=== PATIENT | male | born 1960 | race Caucasian/White ===

== ENCOUNTER 2018-12-25 20:05 | Observation (INO) | payer OTHER ==
[2018-12-25] MEDS ORDERED: PANTOPRAZOLE 40 MG/10 ML VIAL IVP STA (21:09)
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
[2018-12-25 21:22] LABS: Basophils # (A) 0.1 k/uL (0-0.2); Basophils % (A) 1 %; Eosinophils # (A) 0.3 k/uL (0-0.7); Eosinophils % (A) 5 %; HGB 13.1 gm/dL (13.0-17.5); Lymphocytes # (A) 1.7 k/uL (1.0-4.8); Lymphocytes % (A) 29 %; MCH 32.2 pg (25.0-35.0); MCHC 33.5 g/dL (31.0-37.0); MCV 96.2 fL (80.0-100.0); Mean Platelet Volume 7.2; Monocytes # (A) 0.4 k/uL (0-1.0); Monocytes % (A) 6 %; Neutrophils # (A) 3.4 k/uL (1.3-7.7); Neutrophils % (A) 57 %; Platelet Count 163 k/uL (150-450); RBC 4.05 m/uL (4.30-5.90); RDW 13.8 % (11.5-15.5); WBC 5.9 k/uL (3.8-10.6)
[2018-12-25 21:27] LABS: ALT 64 U/L (21-72); AST 135 U/L (17-59); African American GFR (CKD) >90 (>60 ml/min/1.73 sqM); Alkaline Phosphatase 108 U/L (38-126); Anion Gap 10 mmol/L; Blood Urea Nitrogen 6 mg/dL (9-20); Calcium 8.8 mg/dL (8.4-10.2); Carbon Dioxide 26 mmol/L (22-30); Chloride 104 mmol/L (98-107); Glucose 83 mg/dL (74-99); Non-African American GFR(CKD) >90 (>60 ml/min/1.73 sqM); Sodium 140 mmol/L (137-145); Total Bilirubin 0.3 mg/dL (0.2-1.3); Total Protein 7.6 g/dL (6.3-8.2)
[2018-12-25 21:28] LABS: INR 0.9 (<1.2); Partial Thromboplastin Time 24.9 sec (22.0-30.0); Prothrombin Time 10.1 sec (9.0-12.0)
[2018-12-25 23:55] LABS: Appearance,Urine Clear (Clear); Bilirubin,Urine Negative (Negative); Blood,Urine Negative (Negative); Color,Urine Light Yellow; Glucose,Urine (UA) Negative (Negative); Ketones,Urine Negative (Negative); Leukocyte Esterase,Urine Negative (Negative); Nitrite,Urine Negative (Negative); Protein,Urine Negative (Negative); Specific Gravity,Urine 1.009 (1.001-1.035); Urobilinogen,Urine <2.0 mg/dL (<2.0)
[2018-12-26] MEDS ORDERED: NALOXONE 0.4 MG/ML 1 ML VIAL IV PRN (00:16)
[2018-12-26] MEDS ORDERED: THIAMINE 100 MG/ML 2 ML VIAL IM STA (00:33)
[2018-12-26] MEDS ORDERED: LORazepam 2 MG/ML INJ IV PRN ×3 (00:33)
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
[2018-12-26] MEDS: SODIUM CHLORIDE 0.9% 1,000 ML IV SCH ×3 (01:25→22:53)
[2018-12-26] MEDS: NICOTINE 21MG/24HR PATCH TRANSDERM SCH (08:41)
[2018-12-26] MEDS: PANTOPRAZOLE 40 MG/10 ML VIAL IV SCH (08:41)
--- NOTE | 2018-12-26 10:05 | CONS ---
CONSULTATION DATE OF SERVICE: 12/26/2018 REASON FOR CONSULTATION: Rectal bleeding. HISTORY OF PRESENT ILLNESS: The patient is a 58-year-old white male who was admitted to the hospital because of rectal bleeding for the last one week duration. He states that he has been having 1 or 2 bowel movements daily with small amount of bright red blood per rectum. He also complains of some right flank pain. The patient states that he had a colonoscopy about 3 to 4 years ago and was noted to have multiple colon polyps and was told that he has a mass, but he is very unclear about the findings. He apparently never followed up. Recently he has been having progressive weight loss of almost 50 pounds in the last 2 years duration. He does complain of some right upper quadrant abdominal pain. He denies any fever, chills, night sweats. Reports no nausea, vomiting. Denies any significant change in his bowel habits. He was diagnosed with chronic hepatitis C approximately 20 years ago. He was treated with antiviral therapy in the past, but the treatment was discontinued as he was incarcerated and after that he never followed up in the office. PAST MEDICAL HISTORY: Significant for chronic hep C infection. PAST SURGICAL HISTORY: Tonsillectomy, hernia repair. SOCIAL HISTORY: Chronic smoker. Occasional alcohol use. FAMILY HISTORY: Brother of colon cancer recently. MEDICATIONS AT HOME: None. ALLERGIES: No known drug allergies. REVIEW OF SYSTEMS: CARDIOPULMONARY: No chest pain, shortness of breath. GENITOURINARY: No dysuria or hematuria. MUSCULOSKELETAL: Unremarkable. SKIN: Unremarkable. ENDOCRINE: Unremarkable. PSYCHIATRIC: Unremarkable. NEUROLOGY: Unremarkable. ENT/VISION: Unremarkable. CONSTITUTIONAL: Weight loss of 50 pounds in 3 years. GI: As mentioned above. PHYSICAL EXAMINATION: On physical examination, he appears comfortable. No apparent distress. Vital signs are stable. Blood pressure is 139/85, pulse rate 88, temperature 98.5. HEENT EXAMINATION: Unremarkable. Conjunctivae pink. Sclerae anicteric. Oral cavity no lesions. NECK: No JVD or lymph node enlargement. CHEST: Clear to auscultation. HEART: Regular rate and rhythm. ABDOMEN: Soft. Liver was slightly palpable below the right costal margin, but it was soft to firm in consistency. Spleen was not palpable. of the abdomen was benign. EXTREMITIES: No pedal edema. SKIN: No rashes. NEURO: Alert and oriented x3. No focal deficits. LABS: Labs from yesterday WBC 5.9, hemoglobin 13.1, platelets are normal. PT, INR is normal. ALT, AST are 135 and 64 respectively. T bilirubin and alkaline phosphatase are within normal limits. IMPRESSION: 1. Rectal bleeding of one week duration. Normal hemoglobin. Prior history of colon polyps and family history of colon cancer diagnosed in his brother who recently. The patient states that he had a colonoscopy 5 years ago. Records not available at the time of this dictation, but according to the patient, he was noted to have multiple colon polyps and a questionable colonic lesion, but no surgery was performed, actually never followed up. 2. History of chronic hepatitis C infection diagnosed 20 years ago. It was treated in the past but did not achieve remission. RECOMMENDATIONS: 1. Scheduled for a colonoscopy tomorrow. 2. Hepatitis C viral RNA and alpha fetoprotein. 3. Ultrasound of the abdomen. 4. Discussed with the patient about colonoscopy tomorrow. He agrees with the procedure. Risks, benefits, and complications explained. In regards to the chronic hepatitis C infection, he was advised to follow up in office in 2 weeks following discharge from the hospital and further management on an outpatient basis. Thank you for this consultation. MMODL / IJN: [id number] /
[2018-12-26] MEDS ORDERED: chlordiazePOXIDE 25 MG CAP PO STA (12:07)
--- NOTE | 2018-12-26 13:35 | P.PN ---
Subjective Progress Note Date: 12/26/18 patient seen and examined at bedside and reports history of intermittent bloody stools over the last 2 years and unintentional weight loss of greater than 50 pounds during this time. No acute events overnight reports history of alcoholism and that he also withdrawals Objective - Vital Signs Vital signs: Vital Signs Temp 98.7 F 12/26/18 12:12 Pulse 77 12/26/18 12:12 Resp 16 12/26/18 12:12 BP 138/65 12/26/18 12:12 Pulse Ox 98 12/26/18 12:12 Intake & Output 12/25/18 12/26/18 12/26/18 18:59 06:59 18:59 Intake Total 400 Balance 400 Weight 53.524 kg Intake: Intake, IV Titration 400 Amount Sodium Chloride 0.9% 1, 400 000 ml @ 100 mls/hr IV . [facility] Rx#:[id number] Other: Voiding Method Toilet Toilet - Exam Constitutional: No acute distress, conversant, pleasant Eyes: Anicteric sclerae, moist conjunctiva, no lid-lag, PERRLA ENMT: NC/AT,Oropharynx clear, no erythema, exudates Neck:Supple, FROM, no masses, or JVD, No carotid bruits; No thyromegaly Lungs: Clear to auscultation, Clear to percussion, Normal respiratory effort, no accessory muscle use Cardiovascular: Heart regular in rate and rhythm, No murmurs, gallops, or rubs no peripheral edema Abdominal: Soft Nontender, nom distended, no guarding, no rebound or rigidity, Normoactive bowel sounds No hepatomegaly, No splenomegaly, No palpable mass No abdominal wall hernia noted Skin: Normal temperature, tone, texture, turgor, No induration No subcutaneous nodules, No rash, lesions, No ulcers Extremities:No digital cyanosis No clubbing, Pedal pulses intact and symmetrical Radial pulses intact and symmetrical Normal gait and station, No calf tenderness Psychiatric: Alert and oriented to person, place and time, Appropriate affect Intact judgement Neuro: Muscles Strength 5/5 in all 4 extremities, Sensation to light touch gr ossly present throughout, Cranial nerves II-XII grossly intact. No focal sensory deficits - Labs CBC & Chem 7: 12/25/18 20:41 12/25/18 20:41 Labs: Abnormal Lab Results - Last 24 Hours (Table) 12/25/18 12/25/18 Range/Units 20:41 20:41 RBC 4.05 L (4.30-5.90) m/uL BUN 6 L (9-20) mg/dL Creatinine 0.50 L (0.66-1.25) mg/dL AST 135 H (17-59) U/L Assessment and Plan (1) Family history of colon cancer Current Visit: Yes Status: Acute Code(s): Z80.0 - FAMILY HISTORY OF MALIGNANT NEOPLASM OF DIGESTIVE ORGANS SNOMED Code(s): 395283272 (2) Unintentional weight loss Narrative/Plan: * Concern for underlying malignancy family history of colon cancer with reported history of intermittent bloody stools over the last 2 years Current Visit: Yes Status: Acute Code(s): R63.4 - ABNORMAL WEIGHT LOSS SNOMED Code(s): 898002167 (3) History of bloody stools Narrative/Plan: * Workup as above plan for colonoscopy * Patient is not currently anemic * Appreciate GI recommendations patient to have go likely today with plans for colonoscopy tomorrow Current Visit: Yes Status: Acute Code(s): Z87.19 - PERSONAL HISTORY OF OTHER DISEASES OF THE DIGESTIVE SYSTEM SNOMED Code(s): 666624656 (4) Hepatitis C Current Visit: Yes Status: Chronic Code(s): B19.20 - UNSPECIFIED VIRAL HEPATITIS C WITHOUT HEPATIC COMA SNOMED Code(s): 89367555 (5) Chronic alcoholism Narrative/Plan: * Continuous symptom triggered CIWA protocol with Ativan as needed * Patient also started on scheduled Librium dosing q 8 Current Visit: Yes Status: Acute Code(s): F10.20 - ALCOHOL DEPENDENCE, UNCOMPLICATED SNOMED Code(s): 1658663 Plan: Disposition * Continue to follow patient's clinical course follow-up colonoscopy results * Anticipate discharge in 1-2 days
[2018-12-26 15:00] VITALS: BMI 19.0
[2018-12-26] MEDS: THIAMINE 100 MG TAB PO SCH ×2 (15:32→18:22)
--- NOTE | 2018-12-26 15:37 | US ---
EXAMINATION TYPE: US abdomen complete DATE OF EXAM: 12/26/2018 COMPARISON: CLINICAL HISTORY: chr hep C and weight loss. abd pain, "bones hurt" EXAM MEASUREMENTS: Liver Length: 15.6 cm Gallbladder Wall: 0.3 cm CBD: 0.5 cm Spleen: 15.0 cm Right Kidney: 10.6 x 5.2 x 4.4 cm Left Kidney: 10.8 x 4.8 x 4.4 cm Pancreas: Limited by bowel gas Liver: wnl Gallbladder: appearance in slightly contracted with borderline thickened wall Evidence for sonographic Lazar's sign: no CBD: wnl Spleen: enlarged Right Kidney: wnl Left Kidney: wnl Upper IVC: wnl Abd Aorta: wnl . IMPRESSION: 1. Splenomegaly. 2. Gallbladder is decompressed and therefore limited. No obvious gallstones.
[2018-12-26] MEDS ORDERED: PEG 3350-NA SULF,BICARB,CL/KCL 4,000 ML BOTTLE PO ONE (16:00)
[2018-12-26] MEDS: chlordiazePOXIDE 25 MG CAP PO SCH ×2 (18:23→22:45)
[2018-12-27 06:50] VITALS: RESP 16
[2018-12-27 07:36] LABS: Basophils % (A) 1 %; Eosinophils # (A) 0.1 k/uL (0-0.7); Eosinophils % (A) 3 %; Lymphocytes # (A) 1.1 k/uL (1.0-4.8); Lymphocytes % (A) 32 %; MCH 31.3 pg (25.0-35.0); MCHC 31.8 g/dL (31.0-37.0); MCV 98.2 fL (80.0-100.0); Mean Platelet Volume 7.6; Monocytes # (A) 0.2 k/uL (0-1.0); Monocytes % (A) 6 %; Neutrophils % (A) 56 %; Platelet Count 128 k/uL (150-450); RBC 4.18 m/uL (4.30-5.90); RDW 13.8 % (11.5-15.5); WBC 3.6 k/uL (3.8-10.6)
[2018-12-27 07:49] LABS: ALT 54 U/L (21-72); AST 76 U/L (17-59); African American GFR (CKD) >90 (>60 ml/min/1.73 sqM); Albumin 3.2 g/dL (3.5-5.0); Alkaline Phosphatase 81 U/L (38-126); Anion Gap 4 mmol/L; Blood Urea Nitrogen 7 mg/dL (9-20); Calcium 8.4 mg/dL (8.4-10.2); Carbon Dioxide 30 mmol/L (22-30); Chloride 108 mmol/L (98-107); Glucose 91 mg/dL (74-99); Non-African American GFR(CKD) >90 (>60 ml/min/1.73 sqM); Potassium 4.1 mmol/L (3.5-5.1); Sodium 142 mmol/L (137-145); Total Bilirubin 0.6 mg/dL (0.2-1.3); Total Protein 6.5 g/dL (6.3-8.2)
[2018-12-27] MEDS: SODIUM CHLORIDE 0.9% 1,000 ML IV SCH (08:29)
[2018-12-27] MEDS: PANTOPRAZOLE 40 MG/10 ML VIAL IV SCH (08:30)
[2018-12-27] MEDS: THIAMINE 100 MG TAB PO SCH (08:30)
[2018-12-27] MEDS: NICOTINE 21MG/24HR PATCH TRANSDERM SCH (08:30)
[2018-12-27] MEDS: chlordiazePOXIDE 25 MG CAP PO SCH (08:30)
[2018-12-27] MEDS ORDERED: LIDOCAINE 1% INJ 10MG/ML (20 ML MDV) ONE (09:17)
[2018-12-27] MEDS ORDERED: PROPOFOL 10 MG/ML 20 ML VIAL IV ONE (09:17)
[2018-12-27] MEDS ORDERED: IV FLUID CONTINUATION 1,000 ML IV ONE (09:25)
--- NOTE | 2018-12-27 09:47 | P.PCN ---
Date of Procedure: 12/27/18 Procedure(s) Performed: Brief history: Patient is a pleasant 58-year-old white male, admitted hospital with intermittent rectal bleeding. He lost 50 pounds in the last 3 years duration. He states that he did have an upper endoscopy as well as colonoscopy 3 years ago and was diagnosed with multiple colon polyps and a questionable mass recently at about the findings. In view of her progressive weight loss he is scheduled for an elective upper endoscopy as well as colonoscopy today. Procedure performed: Esophagogastroduodenoscopy Colonoscopy with snare polypectomy Preoperative diagnosis: Progressive weight loss of 50 pounds in the last 3 years duration Intermittent rectal bleeding Anesthesia: MAC Procedure: After informed consent was obtained from the patient was brought into the endoscopy unit and IV sedation was administered by anesthesia under continuous monitoring. Initially upper endoscopy was done. The Olympus GF 160 video endoscope was inserted inserted into the mouth and esophagus intubated without any difficulty and was gradually advanced into the stomach and duodenum and carefully examined. The bulb and second part of the duodenum appeared normal. The scope was then withdrawn into the stomach adequately insufflated with air and upon careful examination the antrum and body, cardia and fundus appeared normal. The scope was then withdrawn into the esophagus. The GE junction was located at 40 cm to the incisors. It appeared regular with no erythema erosions or ulcerations. Rest of the esophagus appeared normal. Patient tolerated the procedure well. At this time the patient continued to remain sedation. Initial digital rectal examination was normal. Olympus CF 160 video colonoscope was then inserted into the rectum and gradually advanced to the cecum without any difficulty. Careful examination was performed as the scope was gradually being withdrawn. The prep was excellent. In the base of the cecum there was a 5 mm sessile polyp that was removed by snare polypectomy. The cecum, ascending colon, transverse colon, descending colon, sigmoid colon and rectum appeared normal. Retroflexion was performed in the rectum and small internal hemorrhoids were noted. Patient tolerated the procedure well. Impression: 1. Upper endoscopy was essentially within normal limits with no evidence of esophagitis or peptic ulcer disease 2. Colonoscopy revealed a 5 mm cecal polyp status post polypectomy and small internal hemorrhoids. Rcolonoscopyecommendations: Findings of this examination were discussed with the patient as well as his family. He was advised to follow with the biopsy results. If the biopsy reveals adenoma he can have a repeat colonoscopy in 5 years.
[2018-12-27 10:26] VITALS: TEMP 97.6
[2018-12-27 10:27] VITALS: BP 156/84; PULSE 66
--- NOTE | 2018-12-27 13:53 | P.DS ---
Providers Date of admission: 12/27/18 10:48 Expected date of discharge: 12/27/18 Attending physician: Salvatore Harrington MD Consults: 12/26/18 00:30 Consult Physician Routine Consulting Provider: Ignacio Smith Consult Reason/Comments: GI bleed Do you want consulting provider notified?: Yes, Notify in am Primary care physician: Stated None - Discharge Diagnosis(es) (1) Family history of colon cancer Current Visit: Yes Status: Acute (2) Unintentional weight loss Current Visit: Yes Status: Acute (3) History of bloody stools Current Visit: Yes Status: Acute (4) Hepatitis C Current Visit: Yes Status: Chronic (5) Chronic alcoholism Current Visit: Yes Status: Acute Hospital Course: The patient is a 58-year-old male with a past medical history of hepatitis C chronic alcohol dependence and a family history of a recently brother secondary to colon cancer and presented and was admitted with concern for underlying malignancy secondary to unintentional weight loss and complaints of intermittent bouts of bloody stools over the last 2 years. GI was consulted and the patient received a EGD and colonoscopy EGD was within normal limits with no evidence of gastritis or esophagitis or peptic ulcer disease. Colonoscopy revealed a 5 mm cecal polyp status post polypectomy and small internal hemorrhoids. The patient was swelling cleared for discharge with recommendations to follow-up with Dr. Granados in clinic. This discharge process took approximately 30 minutes Focused exam: GI: Soft nontender nondistended normoactive bowel sounds in all 4 quadrants Patient Condition at Discharge: Good Plan - Discharge Summary Discharge Rx Participant: Yes New Discharge Prescriptions: New Thiamine [Vitamin B-1] 100 mg PO BID-W/MEALS #60 tab Discharge Medication List Thiamine [Vitamin B-1] 100 mg PO BID-W/MEALS #60 tab 12/27/18 [Rx] Follow up Appointment(s)/Referral(s): None,Stated [Primary Care Provider] - 1-2 days () Patient Instructions/Handouts: Thiamine (By mouth), Gastrointestinal Bleeding (DC), Colorectal Cancer (GEN), Weight Management (DC), Abuse of Alcohol (DC) Discharge Disposition: HOME SELF-CARE
[2018-12-29 11:01] LABS: Hepatits C Virus RNA DETECTED (Not detected); LOG HCV IU/mL 6.54 (<1.08)
== END 2018-12-27 13:35 | disposition home or self-care (01) ==
LOC: EC 20:05 → 3NMEDONC 12-26 00:16 → OBSVTOIN 12-27 10:48 → INTOOBSV 12-27 10:48 → UNDODISIN 12-27 13:35
PROVIDERS: ADMIT Internal Medicine; ATTEND Internal Medicine
PROC: 0DBH8ZX Excision of Cecum, Via Natural or Artificial Opening Endoscopic, Diagnostic (ICD-10-PCS; principal; 2018-12-27 08:50)
PROC: 0DJ08ZZ Inspection of Upper Intestinal Tract, Via Natural or Artificial Opening Endoscopic (ICD-10-PCS; 2018-12-27 08:50)
DX: D12.0 Benign neoplasm of cecum (principal); F10.20 Alcohol dependence, uncomplicated; B18.2 Chronic viral hepatitis C; F41.9 Anxiety disorder, unspecified; F90.9 Attention-deficit hyperactivity disorder, unspecified type; R63.4 Abnormal weight loss; Z68.1 Body mass index [BMI] 19.9 or less, adult; K64.8 Other hemorrhoids; R04.0 Epistaxis; R31.9 Hematuria, unspecified; F17.200 Nicotine dependence, unspecified, uncomplicated; M19.90 Unspecified osteoarthritis, unspecified site; Z86.010 Personal history of colon polyps; Z80.0 Family history of malignant neoplasm of digestive organs
CPT/HCPCS: 96372 ×3; 96375; 96374; 99285; 36415; 93005; 86900; 86901; 88305; 87522; 80053 ×2; 85025 ×2; 85610; 85730; 86850; 81003; 82105; 76700; 45385; 43235; G0378 ×3; S4990 ×2; J2060; J3411; J2001; J2704; C9113 ×3; 99284

== ENCOUNTER 2019-01-11 21:39 | Emergency (ER) | payer OTHER ==
[2019-01-11 21:47] VITALS: RESP 20
[2019-01-11] MEDS ORDERED: LIDOCAINE 0.5%-EPI 1:200,000 50 ML VIAL SQ STA (22:10)
[2019-01-11] MEDS ORDERED: AMOXIC-POT CLAV 875MG STARTER 2 EACH TABLET PO STA (22:52)
[2019-01-11] MEDS ORDERED: AMOXIC-POT CLAV 875-125MG 1 EACH TAB PO STA (22:52)
--- NOTE | 2019-01-11 22:52 | ED ---
Wound/Laceration HPI - General Chief Complaint: Wound/Laceration Stated Complaint: ETOH, Dog Bite Time Seen by Provider: 01/11/19 21:51 Source: EMS, RN notes reviewed, old records reviewed Mode of arrival: ambulatory Limitations: no limitations - History of Present Illness Initial Comments: This is a 50-year-old male the ER for evaluation, definitive for evaluation regarding dog bite, patient states he was bit by his pupils ability to oppose now his, shots are up-to-date on the hospital. Patient himself has history of hepatitis C 6 admits to drinking alcohol tonight. Patient denies any other injuries aside from lacerations on his hands -: minutes(s) Extremity Location: Left: Hand Place: home Patient Tetanus UTD: Yes Context: accidental Associated Symptoms: none - Related Data Previous Rx's Medication Instructions Recorded Thiamine [Vitamin B-1] 100 mg PO BID-W/MEALS #60 tab 12/27/18 Amoxic-Pot Clav 875-125Mg 1 tab PO Q12HR #20 tablet 01/11/19 [Augmentin 875-125] Allergies Allergy/AdvReac Type Severity Reaction Status Date / Time No Known Allergies Allergy Verified 01/11/19 22:35 Review of Systems ROS Statement: Those systems with pertinent positive or pertinent negative responses have been documented in the HPI. ROS Other: All systems not noted in ROS Statement are negative. Past Medical History Past Medical History: GI Bleed, Liver Disease Additional Past Medical History / Comment(s): Hep C, recent burn on left arm. ARTHRITIS History of Any Multi-Drug Resistant Organisms: None Reported Past Surgical History: Hernia Repair, Tonsillectomy Additional Past Surgical History / Comment(s): RT HAND BROKE/SCREWS IN PLACE Past Anesthesia/Blood Transfusion Reactions: No Reported Reaction Additional Past Anesthesia/Blood Transfusion Reaction / Comment(s): HAD BLOOD TRANSUSIONS Past Psychological History: ADD/ADHD, Anxiety Smoking Status: Current every day smoker Past Alcohol Use History: Daily Past Drug Use History: None Reported - Past Family History family Additional Family Medical History / Comment(s): Brother of colon cancer General Exam Limitations: no limitations General appearance: alert, in no apparent distress Head exam: Present: atraumatic, normocephalic, normal inspection Eye exam: Present: normal appearance, PERRL, EOMI. Absent: scleral icterus, conjunctival injection, periorbital swelling ENT exam: Present: normal exam, mucous membranes moist Neck exam: Present: normal inspection. Absent: tenderness, meningismus, lymphadenopathy Respiratory exam: Present: normal lung sounds bilaterally. Absent: respiratory distress, wheezes, rales, rhonchi, stridor Cardiovascular Exam: Present: regular rate, normal rhythm, normal heart sounds. Absent: systolic murmur, diastolic murmur, rubs, gallop, clicks GI/Abdominal exam: Present: soft, normal bowel sounds. Absent: distended, tenderness, guarding, rebound, rigid Extremities exam: Present: normal inspection, full ROM, normal capillary refill, other (Patient does have left hand lacerations, patient is mild laceration to the palmar aspect of his thumb 1 cm, also significant laceration on ring finger 5 cm with multiple with multiple other small lacerations). Absent: tenderness, pedal edema, joint swelling, calf tenderness Back exam: Present: normal inspection Neurological exam: Present: alert, oriented X3, CN II-XII intact Psychiatric exam: Present: normal affect, normal mood Skin exam: Present: warm, dry, intact, normal color. Absent: rash Course Vital Signs 01/11/19 01/12/19 21:42 00:25 Temperature 98.2 F Pulse Rate 64 86 Respiratory 20 20 Rate Blood Pressure 147/96 115/82 O2 Sat by Pulse 96 99 Oximetry - Reevaluation(s) Reevaluation #1: 01/12/19 00:39 Medical record reviewed Reevaluation #2: 01/12/19 00:40 Patient informed inability to close all wounds, wounds are closely approximated especially was gaping. Patient given antibiotics here in the ER. Procedures - Laceration Laceration #1 Consent Obtained: verbal consent Indication: laceration Site: hand (Thumb and index finger) Size (cm): 4 (Total) Description: linear, irregular, contaminated Depth: simple, single layer Anesthetic Used: lidocaine 1% Anesthesia Technique: local infiltration Pre-repair: wound explored, irrigated extensively, deep structures intact Type of Sutures: nylon Size of Sutures: 5-0 Technique: simple, interrupted Patient Tolerated Procedure: well Additional Comments: Patient able to move digits without difficulty, patient has good flexion with PIP and DIP isolation, full extension Medical Decision Making - Medical Decision Making 58 male the ER status post dog bite. No foreign body on x-ray, no fractures on x-ray, lacerations are repaired and approximated. Patient can be discharged home on antibiotics - Radiology Data Radiology results: report reviewed (X-ray left hand is negative for traumatic injury), image reviewed Disposition Clinical Impression: Dog bite, hand, Laceration, Dog bite of left hand Disposition: HOME SELF-CARE Condition: Good Instructions (If sedation given, give patient instructions): Animal Bite (ED), Laceration (ED) Prescriptions: Amoxic-Pot Clav 875-125Mg [Augmentin 875-125] 1 tab PO Q12HR #20 tablet Is patient prescribed a controlled substance at d/c from ED?: No Referrals: None,Stated [Primary Care Provider] - 1-2 days
[2019-01-12 00:34] VITALS: BP 115/82; PULSE 86; TEMP 98.2
--- NOTE | 2019-01-12 08:14 | XR ---
EXAMINATION TYPE: XR hand complete LT DATE OF EXAM: 01/11/2019 COMPARISON: NONE HISTORY: 8-year-old male with pain after dog bite TECHNIQUE: 3 views FINDINGS: Minimal punctate radiodense debris projecting overlying the skin surface of the ring finger and littl e finger tip. Nondisplaced oblique fracture through the mid to distal aspect of the fourth distal pha lanx. Subtle nondisplaced tuft fracture suggested of the fifth distal phalanx. Overlying soft tissue injuries. IMPRESSION: Nondisplaced fractures of the fourth and fifth distal phalanges with overlying soft tissue injury and minimal radiodense debris likely along the skin surface.
--- NOTE | 2019-01-13 07:12 | ED ---
Medical Decision Making - Medical Decision Making 50 female the ER for evasive Doppler was done by left hand, laceration is repaired, approximated here in ER. Patient placed on antibiotics Review of x-rays positive for distal tuft fractures with no displacement, very minor, we'll give follow-up for orthopedics, no need for splinting at this time - Radiology Data Radiology results: report reviewed (X-ray and does show nondisplaced tuft fracture suggested), image reviewed Disposition Clinical Impression: Dog bite, hand, Laceration, Dog bite of left hand, Closed fracture of tuft of distal phalanx of finger Narrative: 4 and 5th tuft fracture suggested Disposition: HOME SELF-CARE Condition: Good Instructions (If sedation given, give patient instructions): Animal Bite (ED), Laceration (ED) Prescriptions: Amoxic-Pot Clav 875-125Mg [Augmentin 875-125] 1 tab PO Q12HR #20 tablet Is patient prescribed a controlled substance at d/c from ED?: No Referrals: None,Stated [Primary Care Provider] - 1-2 days
== END 2019-01-12 00:47 | disposition home or self-care (01) ==
LOC: EC 21:39
DX: S61.452A Open bite of left hand, initial encounter (principal); S61.012A Laceration without foreign body of left thumb without damage to nail, initial encounter; S61.215A Laceration without foreign body of left ring finger without damage to nail, initial encounter; F17.200 Nicotine dependence, unspecified, uncomplicated; Z96.698 Presence of other orthopedic joint implants; W54.0XXA Bitten by dog, initial encounter; Y92.009 Unspecified place in unspecified non-institutional (private) residence as the place of occurrence of the external cause
CPT/HCPCS: 12002; 99284

== ENCOUNTER 2019-04-18 10:48 | Inpatient (IN) | payer OTHER ==
[2019-04-18] MEDS ORDERED: THIAMINE 100 MG/ML 2 ML VIAL IM STA (11:29)
[2019-04-18] MEDS ORDERED: ONDANSETRON 4 MG/2 ML VIAL IVP STA (11:29)
[2019-04-18] MEDS ORDERED: SODIUM CHLORIDE 0.9% 2,000 ML IV STA (11:29)
[2019-04-18] MEDS ORDERED: PANTOPRAZOLE 40 MG/10 ML VIAL IVP STA (11:29)
--- NOTE | 2019-04-18 11:42 | ED ---
Nausea/Vomiting/Diarrhea HPI - General Chief complaint: Nausea/Vomiting/Diarrhea Stated complaint: Vomiting Time Seen by Provider: 04/18/19 11:28 Source: patient, RN notes reviewed, old records reviewed Mode of arrival: wheelchair Limitations: no limitations - History of Present Illness Initial comments: Patient is a 59-year-old male presents emergency department today for evaluation for chief complaint of nausea and vomiting, and of abdominal pain and back pain. Patient reports he was diagnosed with liver cancer but has not followed up with GI or oncology. Patient states that he was with his sister today and they were going to [facility] to help him start to go through detox. Patient went to [facility] they sent him here because his withdrawals were too difficult to manage. Elevated heart rate and was shaking. Patient states that he has noticed some dark stools and with his vomiting has noticed some hematemesis. Patient states that his last drink was at 4 AM. - Related Data Home Medications Medication Instructions Recorded Confirmed Aspirin EC [Ecotrin Low Dose] 81 mg PO DAILY 04/18/19 04/18/19 Ibuprofen [Motrin] 800 mg PO TID PRN 04/18/19 04/18/19 Allergies Allergy/AdvReac Type Severity Reaction Status Date / Time No Known Allergies Allergy Verified 04/18/19 14:41 Review of Systems ROS Statement: Those systems with pertinent positive or pertinent negative responses have been documented in the HPI. ROS Other: All systems not noted in ROS Statement are negative. Past Medical History Past Medical History: GI Bleed, Liver Disease Additional Past Medical History / Comment(s): Hep C, recent burn on left arm. AR THRITIS History of Any Multi-Drug Resistant Organisms: None Reported Past Surgical History: Hernia Repair, Tonsillectomy Additional Past Surgical History / Comment(s): RT HAND BROKE/SCREWS IN PLACE Past Anesthesia/Blood Transfusion Reactions: No Reported Reaction Additional Past Anesthesia/Blood Transfusion Reaction / Comment(s): HAD BLOOD TRANSUSIONS Past Psychological History: ADD/ADHD, Anxiety Smoking Status: Current every day smoker Past Alcohol Use History: Daily Past Drug Use History: None Reported - Past Family History family Additional Family Medical History / Comment(s): Brother of colon cancer General Exam - General Exam Comments Initial Comments: 59-year-old male, actively shaking. Small alcohol on breath. Limitations: no limitations Head exam: Present: atraumatic, normocephalic, normal inspection Eye exam: Present: normal appearance, PERRL, EOMI. Absent: scleral icterus, conjunctival injection, periorbital swelling ENT exam: Present: normal exam, mucous membranes dry, mucous membranes moist Neck exam: Present: normal inspection. Absent: tenderness, meningismus, lymphadenopathy Respiratory exam: Present: normal lung sounds bilaterally. Absent: respiratory distress, wheezes, rales, rhonchi, stridor Cardiovascular Exam: Present: regular rate, normal rhythm, normal heart sounds. Absent: systolic murmur, diastolic murmur, rubs, gallop, clicks GI/Abdominal exam: Present: soft, tenderness (Right upper quadrant tenderness), normal bowel sounds. Absent: distended, guarding, rebound, rigid Course Vital Signs 04/18/19 04/18/19 11:17 14:01 Temperature 98.5 F 98.6 F Pulse Rate 136 H 111 H Respiratory 26 H 18 Rate Blood Pressure 177/102 148/95 O2 Sat by Pulse 95 98 Oximetry Medical Decision Making - Medical Decision Making 59-year-old male with a history of alcohol use disorder presents today for nausea and vomiting. He was attempting to [facility] rehab facility today and they refused him due to to severe withdrawals. He was tachycardic and had severe shaking. He also had some episodes of vomiting. He states that earlier this week he noticed Some bloody emesis and dark stool. He has a history of GI bleeds. At this time patient's labwork was reviewed and he is appear to be g oing through withdrawals on initial evaluation. He is given an IV with 2 L of fluid, and Ativan. On reevaluation he is left shaking is more stable. Lab work was reviewed. Syncope leukocytosis of 21,000. Patient was found to be hyperglycemic, blood sugar of 390. He has no known history of diabetes. She was given insulin. PatientHemoglobin is 12.7. Sodium 132. Chloride 96. CO2 of 16. Patient had a significantly elevated lactic acid of 9.8. Likely reflective of going through withdrawals and dehydration. Patient did have a positive stool occult, no black tarry stool while in emergency department. She was given 1 dose of ibuprofen tonic. Complaint of upper abdominal pain. She leukocytosis CT done and pelvis was ordered. There is evidence of bibasilar infiltrate concerning for pneumonia. He does complain of a cough as well. Treatment at this time with 1 g of Rocephin. Blood cultures were obtained. He does meet sepsis criteria. Asians case discussed with Dr. Salas whom discussed the case with Dr. johns. - Lab Data Result diagrams: 04/18/19 11:40 04/18/19 11:40 Lab Results 04/18/19 04/18/19 04/18/19 Range/Units 11:40 11:40 11:40 WBC 21.2 H (3.8-10.6) k/uL RBC 3.85 L (4.30-5.90) m/uL Hgb 12.7 L (13.0-17.5) gm/dL Hct 37.5 L (39.0-53.0) % MCV 97.5 (80.0-100.0) fL MCH 33.0 (25.0-35.0) pg MCHC 33.8 (31.0-37.0) g/dL RDW 13.2 (11.5-15.5) % Plt Count 107 L (150-450) k/uL Neutrophils % 94 % Lymphocytes % 3 % Monocytes % 2 % Eosinophils % 0 % Basophils % 0 % Neutrophils # 20.0 H (1.3-7.7) k/uL Lymphocytes # 0.5 L (1.0-4.8) k/uL Monocytes # 0.5 (0-1.0) k/uL Eosinophils # 0.1 (0-0.7) k/uL Basophils # 0.1 (0-0.2) k/uL PT (9.0-12.0) sec INR (<1.2) APTT (22.0-30.0) sec Sodium 132 L (137-145) mmol/L Potassium 3.9 (3.5-5.1) mmol/L Chloride 96 L (98-107) mmol/L Carbon Dioxide 16 L (22-30) mmol/L Anion Gap 20 mmol/L BUN 13 (9-20) mg/dL Creatinine 0.56 L (0.66-1.25) mg/dL Est GFR (CKD-EPI)AfAm >90 (>60 ml/min/1.73 sqM) Est GFR (CKD-EPI)NonAf >90 (>60 ml/min/1.73 sqM) Glucose 388 H (74-99) mg/dL POC Glucose (mg/dL) (75-99) mg/dL POC Glu [employer] Worker ID Plasma Lactic Acid Rob (0.7-2.0) mmol/L Calcium 8.8 (8.4-10.2) mg/dL Magnesium 1.7 (1.6-2.3) mg/dL Total Bilirubin 0.7 (0.2-1.3) mg/dL AST 83 H (17-59) U/L ALT 37 (21-72) U/L Alkaline Phosphatase 120 (38-126) U/L Total Protein 8.0 (6.3-8.2) g/dL Albumin 4.0 (3.5-5.0) g/dL Amylase 168 H (30-110) U/L Lipase 397 H (23-300) U/L Urine Color Urine Appearance (Clear) Urine pH (5.0-8.0) Ur Specific [place] (1.001-1.035) Urine Protein (Negative) Urine Glucose (UA) (Negative) Urine Ketones (Negative) Urine Blood (Negative) Urine Nitrite (Negative) Urine Bilirubin (Negative) Urine Urobilinogen (<2.0) mg/dL Ur Leukocyte Esterase (Negative) Urine RBC (0-5) /hpf Urine WBC (0-5) /hpf Ur Squamous Epith Cells (0-4) /hpf Hyaline Casts (0-2) /lpf Stool Occult Blood (Negative) Serum Alcohol <10 mg/dL Acetone, Qual Negative (Negative) Blood Type O Positive Blood Type Recheck O Pos Bld Type Recheck Status No Antibody Screen NEGATIVE Spec Expiration Date 04/21/2019233904/18/19 04/18/19 04/18/19 Range/Units 11:40 11:41 13:45 WBC (3.8-10.6) k/uL RBC (4.30-5.90) m/uL Hgb (13.0-17.5) gm/dL Hct (39.0-53.0) % MCV (80.0-100.0) fL MCH (25.0-35.0) pg MCHC (31.0-37.0) g/dL RDW (11.5-15.5) % Plt Count (150-450) k/uL Neutrophils % % Lymphocytes % % Monocytes % % Eosinophils % % Basophils % % Neutrophils # (1.3-7.7) k/uL Lymphocytes # (1.0-4.8) k/uL Monocytes # (0-1.0) k/uL Eosinophils # (0-0.7) k/uL Basophils # (0-0.2) k/uL PT (9.0-12.0) sec INR (<1.2) APTT (22.0-30.0) sec Sodium (137-145) mmol/L Potassium (3.5-5.1) mmol/L Chloride (98-107) mmol/L Carbon Dioxide (22-30) mmol/L Anion Gap mmol/L BUN (9-20) mg/dL Creatinine (0.66-1.25) mg/dL Est GFR (CKD-EPI)AfAm (>60 ml/min/1.73 sqM) Est GFR (CKD-EPI)NonAf (>60 ml/min/1.73 sqM) Glucose (74-99) mg/dL POC Glucose (mg/dL) 383 H (75-99) mg/dL POC Glu [employer] Worker ID Carlo Powell Plasma Lactic Acid Rob 9.8 H* (0.7-2.0) mmol/L Calcium (8.4-10.2) mg/dL Magnesium (1.6-2.3) mg/dL Total Bilirubin (0.2-1.3) mg/dL AST (17-59) U/L ALT (21-72) U/L Alkaline Phosphatase (38-126) U/L Total Protein (6.3-8.2) g/dL Albumin (3.5-5.0) g/dL Amylase (30-110) U/L Lipase (23-300) U/L Urine Color Yellow Urine Appearance Clear (Clear) Urine pH 5.5 (5.0-8.0) Ur Specific [place] 1.024 (1.001-1.035) Urine Protein 1+ H (Negative) Urine Glucose (UA) 4+ H (Negative) Urine Ketones 1+ H (Negative) Urine Blood Trace H (Negative) Urine Nitrite Negative (Negative) Urine Bilirubin Negative (Negative) Urine Urobilinogen <2.0 (<2.0) mg/dL Ur Leukocyte Esterase Negative (Negative) Urine RBC 1 (0-5) /hpf Urine WBC 2 (0-5) /hpf Ur Squamous Epith Cells <1 (0-4) /hpf Hyaline Casts 1 (0-2) /lpf Stool Occult Blood (Negative) Serum Alcohol mg/dL Acetone, Qual (Negative) Blood Type Blood Type Recheck Bld Type Recheck Status Antibody Screen Spec Expiration Date 04/18/19 04/18/19 Range/Units 13:50 14:17 WBC (3.8-10.6) k/uL RBC (4.30-5.90) m/uL Hgb (13.0-17.5) gm/dL Hct (39.0-53.0) % MCV (80.0-100.0) fL MCH (25.0-35.0) pg MCHC (31.0-37.0) g/dL RDW (11.5-15.5) % Plt Count (150-450) k/uL Neutrophils % % Lymphocytes % % Monocytes % % Eosinophils % % Basophils % % Neutrophils # (1.3-7.7) k/uL Lymphocytes # (1.0-4.8) k/uL Monocytes # (0-1.0) k/uL Eosinophils # (0-0.7) k/uL Basophils # (0-0.2) k/uL PT 10.6 (9.0-12.0) sec INR 1.0 (<1.2) APTT 22.0 (22.0-30.0) sec Sodium (137-145) mmol/L Potassium (3.5-5.1) mmol/L Chloride (98-107) mmol/L Carbon Dioxide (22-30) mmol/L Anion Gap mmol/L BUN (9-20) mg/dL Creatinine (0.66-1.25) mg/dL Est GFR (CKD-EPI)AfAm (>60 ml/min/1.73 sqM) Est GFR (CKD-EPI)NonAf (>60 ml/min/1.73 sqM) Glucose (74-99) mg/dL POC Glucose (mg/dL) (75-99) mg/dL POC Glu [employer] Worker ID Plasma Lactic Acid Rob (0.7-2.0) mmol/L Calcium (8.4-10.2) mg/dL Magnesium (1.6-2.3) mg/dL Total Bilirubin (0.2-1.3) mg/dL AST (17-59) U/L ALT (21-72) U/L Alkaline Phosphatase (38-126) U/L Total Protein (6.3-8.2) g/dL Albumin (3.5-5.0) g/dL Amylase (30-110) U/L Lipase (23-300) U/L Urine Color Urine Appearance (Clear) Urine pH (5.0-8.0) Ur Specific [place] (1.001-1.035) Urine Protein (Negative) Urine Glucose (UA) (Negative) Urine Ketones (Negative) Urine Blood (Negative) Urine Nitrite (Negative) Urine Bilirubin (Negative) Urine Urobilinogen (<2.0) mg/dL Ur Leukocyte Esterase (Negative) Urine RBC (0-5) /hpf Urine WBC (0-5) /hpf Ur Squamous Epith Cells (0-4) /hpf Hyaline Casts (0-2) /lpf Stool Occult Blood Positive (Negative) Serum Alcohol mg/dL Acetone, Qual (Negative) Blood Type Blood Type Recheck Bld Type Recheck Status Antibody Screen Spec Expiration Date - Radiology Data Radiology results: report reviewed CT shows patchy bibasilar infiltrates may represent pneumonia. Mild hepatomegaly and fatty infiltration of the liver. Small hiatal hernia. Mild degenerative changes within spine. Critical Care Time Critical Care Time: Yes Total Critical Care Time: 30 Critical Care Time: Greater than 30 minutes of critical care time was used diagnosing sepsis, managing patient's alcohol withdrawal, place the Patient on antibiotics and medications for concern for possible GI bleed. Disposition Clinical Impression: Melena, Chronic alcoholism, New onset type 2 diabetes mellitus, Pneumonia, Sepsis, GI bleed Disposition: ADMITTED IP TO [facility] Condition: Stable Is patient prescribed a controlled substance at d/c from ED?: No Referrals: Epifanio Rosario MD [Primary Care Provider] - 1-2 days Time of Disposition: 14:56
[2019-04-18 11:54] LABS: Glucose,Whole Blood 383 mg/dL (75-99)
[2019-04-18 12:06] LABS: Basophils # (A) 0.1 k/uL (0-0.2); Basophils % (A) 0 %; Eosinophils # (A) 0.1 k/uL (0-0.7); Eosinophils % (A) 0 %; HCT 37.5 % (39.0-53.0); HGB 12.7 gm/dL (13.0-17.5); Lymphocytes # (A) 0.5 k/uL (1.0-4.8); Lymphocytes % (A) 3 %; MCHC 33.8 g/dL (31.0-37.0); MCV 97.5 fL (80.0-100.0); Mean Platelet Volume 7.6; Monocytes # (A) 0.5 k/uL (0-1.0); Monocytes % (A) 2 %; Neutrophils % (A) 94 %; Platelet Count 107 k/uL (150-450); RBC 3.85 m/uL (4.30-5.90); RDW 13.2 % (11.5-15.5); WBC 21.2 k/uL (3.8-10.6)
[2019-04-18] MEDS: LORazepam 2 MG/ML INJ IV PRN ×3 (12:15→17:15)
[2019-04-18 12:22] LABS: ALT 37 U/L (21-72); AST 83 U/L (17-59); African American GFR (CKD) >90 (>60 ml/min/1.73 sqM); Alcohol <10 mg/dL; Alkaline Phosphatase 120 U/L (38-126); Amylase 168 U/L (30-110); Anion Gap 20 mmol/L; Blood Urea Nitrogen 13 mg/dL (9-20); Calcium 8.8 mg/dL (8.4-10.2); Carbon Dioxide 16 mmol/L (22-30); Chloride 96 mmol/L (98-107); Glucose 388 mg/dL (74-99); Magnesium 1.7 mg/dL (1.6-2.3); Potassium 3.9 mmol/L (3.5-5.1); Sodium 132 mmol/L (137-145); Total Bilirubin 0.7 mg/dL (0.2-1.3)
[2019-04-18] MEDS ORDERED: SODIUM CHLORIDE 0.9% 1,000 ML with MVI, ADULT NO.4 WITH VIT K 10 ML, THIAMINE 100 MG, F... IV ONE ×4 (12:30)
--- NOTE | 2019-04-18 13:30 | CT ---
EXAMINATION TYPE: CT abdomen pelvis w con DATE OF EXAM: 04/18/2019 REFERENCE: NONE HISTORY: pain, RUQ, Hx liver CA?? HISTORY: RUQ pain CT DLP: 574.7 mGy Automated exposure control for dose reduction was used. TECHNIQUE: Helical acquisition through the abdomen and pelvis was obtained following the oral ingesti on of without Oral Contrast and following intravenous administration of 100 mL of Isovue 300. The paola a was reformatted in axial, coronal and sagittal projections. FINDINGS: There are patchy infiltrates present at both lung bases. There is no pleural or pericardia l fluid. The heart is not enlarged. There is a small hiatal hernia. Within the abdomen, the liver is prominent measuring 18.4 cm. The liver is low in attenuation compare d to the spleen and may be fatty infiltrated. The spleen and gallbladder appear normal. Tiny amount of calcification associated with the right adrenal gland. This may BE due to previous adr enal hemorrhage. The left adrenal gland is normal. Both kidneys demonstrate function and appear morphologically normal. The pancreas is normal. There is moderate atheromatous calcification of the visualized arterial tree. There is no significant retroperitoneal, iliac or inguinal adenopathy. Bladder is unremarkable There is minimal calcification of the prostate gland. There is no significant diverticular change and there is no radiographic evidence of diverticulitis. The appendix is not visualized with certainty. Small bowel loops are of normal caliber. There is no free fluid and no free air. There is minor hyper trophic spondylosis at L3-4 IMPRESSION: 1. PATCHY BIBASILAR INFILTRATES MAY REPRESENT PNEUMONIA. 2. MILD HEPATOMEGALY AND FATTY INFILTRATION OF THE LIVER. 3. SMALL HIATAL HERNIA. 4. MILD DEGENERATIVE CHANGE WITHIN THE SPINE.
[2019-04-18] MEDS ORDERED: SODIUM CHLORIDE 0.9% 1,000 ML IV ONE (13:47)
[2019-04-18 13:52] LABS: Appearance,Urine Clear (Clear); Bilirubin,Urine Negative (Negative); Blood,Urine Trace (Negative); Color,Urine Yellow; Glucose,Urine (UA) 4+ (Negative); Hyaline Casts,Urine 1 /lpf (0-2); Ketones,Urine 1+ (Negative); Leukocyte Esterase,Urine Negative (Negative); Nitrite,Urine Negative (Negative); PH, Urine 5.5 (5.0-8.0); Protein,Urine 1+ (Negative); RBC,Urine 1 /hpf (0-5); Specific Gravity,Urine 1.024 (1.001-1.035); Squamous Epithelial Cell,Urine <1 /hpf (0-4); Urobilinogen,Urine <2.0 mg/dL (<2.0); WBC,Urine 2 /hpf (0-5)
[2019-04-18] MEDS ORDERED: cefTRIAXone IN SWFI 1,000 MG/10 ML SYRINGE IVP STA (13:57)
[2019-04-18] MEDS: SODIUM CHLORIDE 0.9% 1,000 ML IV SCH (14:37)
[2019-04-18 14:42] LABS: Prothrombin Time 10.6 sec (9.0-12.0)
[2019-04-18] MEDS ORDERED: INSULIN REGULAR 100 UNIT/ML VIAL IV ONE (14:55)
[2019-04-18] MEDS ORDERED: NALOXONE 0.4 MG/ML 1 ML VIAL IV PRN (14:59)
[2019-04-18] MEDS ORDERED: HYDROmorphone 0.5 MG/0.5 ML SYRINGE IVP PRN (14:59)
[2019-04-18] MEDS ORDERED: ONDANSETRON 4 MG/2 ML VIAL IVP PRN (14:59)
[2019-04-18] MEDS ORDERED: HYDROmorphone 1 MG/ML 1 ML SYRINGE IVP PRN (14:59)
--- NOTE | 2019-04-18 15:26 | XR ---
EXAMINATION TYPE: XR chest 2V DATE OF EXAM: 04/18/2019 COMPARISON: 09/22/2013 HISTORY: Cough and congestion TECHNIQUE: Frontal and lateral views of the chest are obtained. FINDINGS: There is a diffuse patchy infiltrate in both lungs. Heart size is normal. There are chest leads. There is no definite heart failure. Bony thorax is intact. There is old ununited left clavicle fracture. IMPRESSION: There is a patchy bilateral airspace pneumonia mainly in lower lung blank that is new compared to old exam. Normal heart.
[2019-04-18 16:19] LABS: Glucose,Whole Blood 97 mg/dL (75-99)
[2019-04-18] MEDS ORDERED: DIAZEPAM 5 MG TAB PO PRN (16:25)
[2019-04-18] MEDS ORDERED: IPRATROPIUM-ALBUTEROL 3 ML NEB INHALATION PRN (16:30)
[2019-04-18 17:30] LABS: Glucose,Whole Blood 124 mg/dL (75-99)
[2019-04-18] MEDS: CALCIUM CARBONATE LIQUID 500 MG/5 ML CUP PO SCH (17:50)
[2019-04-18] MEDS: THIAMINE 100 MG TAB PO SCH (17:50)
[2019-04-18 19:58] LABS: Glucose,Whole Blood 154 mg/dL (75-99)
[2019-04-18 20:21] LABS: Basophils % (A) 0 %; Eosinophils % (A) 0 %; HCT 30.6 % (39.0-53.0); HGB 10.6 gm/dL (13.0-17.5); Lymphocytes # (A) 0.9 k/uL (1.0-4.8); Lymphocytes % (A) 10 %; MCH 33.3 pg (25.0-35.0); MCHC 34.8 g/dL (31.0-37.0); MCV 95.7 fL (80.0-100.0); Mean Platelet Volume 7.4; Monocytes # (A) 0.3 k/uL (0-1.0); Monocytes % (A) 4 %; Neutrophils # (A) 7.6 k/uL (1.3-7.7); Neutrophils % (A) 86 %; WBC 8.8 k/uL (3.8-10.6)
[2019-04-18] MEDS: METOPROLOL TARTRATE 12.5 MG TAB PO SCH (21:30)
[2019-04-18] MEDS: PANTOPRAZOLE 40 MG/10 ML VIAL IV SCH (21:30)
[2019-04-18] MEDS: NICOTINE POLACRILEX 2 MG GUM BUCCAL PRN (21:34)
[2019-04-18 21:45] LABS: Anisocytosis (M) Present
[2019-04-18 21:47] LABS: Polychromasia Present
[2019-04-18 21:48] LABS: Platelet Count 74 k/uL (150-450)
[2019-04-19] MEDS: CALCIUM CARBONATE LIQUID 500 MG/5 ML CUP PO SCH ×3 (06:15→17:33)
[2019-04-19] MEDS: THIAMINE 100 MG TAB PO SCH ×2 (06:15→17:33)
[2019-04-19] MEDS: NICOTINE POLACRILEX 2 MG GUM BUCCAL PRN (06:15)
[2019-04-19 06:20] LABS: Glucose,Whole Blood 132 mg/dL (75-99)
[2019-04-19] MEDS: NICOTINE 14MG/24HR PATCH TRANSDERM SCH (09:23)
[2019-04-19] MEDS: METOPROLOL TARTRATE 12.5 MG TAB PO SCH ×3 (09:23→21:11)
[2019-04-19] MEDS: PANTOPRAZOLE 40 MG/10 ML VIAL IV SCH (09:23)
[2019-04-19] MEDS: LORazepam 2 MG/ML INJ IV PRN ×4 (09:32→22:02)
[2019-04-19] MEDS: SODIUM CHLORIDE 0.9% 1,000 ML IV SCH ×3 (11:27→20:00)
[2019-04-19 12:41] LABS: Glucose,Whole Blood 124 mg/dL (75-99)
[2019-04-19] MEDS: DIAZEPAM 5 MG TAB PO SCH ×2 (12:51→21:11)
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
--- NOTE | 2019-04-19 15:44 | P.PN ---
Progress Note - Text Progress Note Date: 04/19/19 Chief Complaint: Abdominal pain Interval history: This is a 59-year-old patient of Dr. Epifanio Garcia. Patient smokes about 3 packs of cigarettes today and also does binge alcohol drinking. Patient presents with increasing upper abdominal pain getting worse progressively over a period of days. Patient not been eating much. Some nausea. Some vomiting. No fever no chills. Occasionally constipated. Pain is worse with eating. Patient did have a EGD colonoscopy back in December of this year. Essentially unremarkable. With some gastritis. Patient been drinking quite a bit a cane since his brother . Admitted with-bilateral pneumonia, COPD exacerbation, flareup of gastritis from alcoholism, alcohol-induced pancreatitis Today-laying in bed. Feels a bit better. Tolerating clear liquids. Some improvement abdominal pain. No vomiting. No fever no chills. Progress review of systems Active Medications Albuterol/Ipratropium (Duoneb 0.5 Mg-3 Mg/3 Ml Soln) 3 ml INHALATION RT-QID [facility] Budesonide (Pulmicort) 1 mg INHALATION RT-BID [facility] Calcium Carbonate/Glycine (Tums Liquid) 500 mg PO TID-W/MEALS [facility] Last Admin: 04/19/19 11:35 Dose: 500 mg Documented by: Diazepam (Valium) 5 mg PO TID [facility] Last Admin: 04/19/19 12:51 Dose: 5 mg Documented by: Enoxaparin Sodium (Lovenox) 40 mg SQ DAILY [facility] Sodium Chloride (Saline 0.9%) 1,000 mls @ 100 mls/hr IV .Q10H [facility] Last Admin: 04/19/19 11:27 Dose: Not Given Documented by: Cefepime HCl 2 gm/ Sodium (Chloride) 100 mls @ 200 mls/hr IVPB Q12HR [facility] Lorazepam (Ativan) 1 mg IV Q2HR PRN PRN Reason: CIWA 8 or 9 Last Admin: 04/19/19 15:28 Dose: 1 mg Documented by: Lorazepam (Ativan) 1 mg IV Q1HR PRN PRN Reason: CIWA 10 to 15 Last Admin: 04/18/19 17:15 Dose: 1 mg Documented by: Methylprednisolone Sodium Succinate (Solu-Medrol) 40 mg IV Q8HR [facility] Metoprolol Tartrate (Lopressor) 12.5 mg PO TID [facility] Last Admin: 04/19/19 09:23 Dose: 12.5 mg Documented by: Naloxone HCl (Narcan) 0.2 mg IV Q2M PRN PRN Reason: Opioid Reversal Nicotine (Habitrol 14mg/24hr Patch) 1 patch TRANSDERM DAILY [facility] Last Admin: 04/19/19 09:23 Dose: 1 patch Documented by: Nicotine Polacrilex (Nicorette Gum) 2 mg BUCCAL Q4HR PRN PRN Reason: Nicotine Cravings Last Admin: 04/19/19 06:15 Dose: 2 mg Documented by: Ondansetron HCl (Zofran) 4 mg IVP Q8HR PRN PRN Reason: Nausea And Vomiting Pantoprazole Sodium (Protonix) 40 mg PO AC-BID [facility] Thiamine HCl (Vitamin B-1) 100 mg PO BID-W/MEALS [facility] Last Admin: 04/19/19 06:15 Dose: 100 mg Documented by: Physical examination: VITAL SIGNS: 98.3, 109, 16, 134/83, 97% room air GENERAL: Laying in bed, awake, more comfortable EYES: Pupils equal. Conjunctiva normal. HEENT: External appearance of nose and ears normal, oral cavity grossly normal. NECK: JVD not raised; masses not palpable. HEART: First and second heart sounds are normal; no edema. LUNGS: Respiratory rate increased, decreased breath sounds some wheezing. ABDOMEN: Soft, upper abdominal tenderness, no guarding or rigidity, liver spleen not palpable, no masses palpable. PSYCH: [Alert and oriented x3; mood and affect anxious. INVESTIGATIONS, reviewed in the clinical context: White count 8.8 hemoglobin 10.6 platelets 74 Previous testing: White count 21.2 hemoglobin 12.7 platelets 107 potassium 3.9 bun 13 creatine 0.56 glucose 383 plasma lactic acid 9.8 Amylase 168 lipase 397 Chest x-ray film-personally reviewed by me shows infiltrates, at both lung bases Computed tomography scan of the abdomen-shows basilar infiltrates in the lung, fatty infiltration of the liver Assessment: -Bilateral pneumonia -Acute on chronic gastritis from chronic alcoholism and binge drinking. May have associated esophagitis. Patient in December of this year did have unremarkable EGD colonoscopy. Patient clinically does not have a surgical abdomen. -Lactic acidosis, secondary to sepsis from pneumonia -Mild pancreatitis secondary to alcoholism -Chronic alcoholism -Acute COPD exacerbation in a current smoker -Chronic nicotine dependence patient is a cigarette smoker -Drop in hemoglobin is from the fact that then admitted patient was dry and was hemoconcentrated, and patient probably got down to his baseline hemoglobin -Normocytic anemia, likely nutritional -Thrombocytopenia secondary to alcoholism -Suspect underlying chronic alcohol liver disease Plan: Patient on Valium for DT prophylaxis On IV antibiotics. On IV fluids. That'll be advanced to full liquids. Encouraged to sit up on a chair and ambulate as tolerated. Repeat labs in the morning. We will check iron and B12 levels. Thiamine has been added.
[2019-04-19 17:12] LABS: Glucose,Whole Blood 113 mg/dL (75-99)
[2019-04-19] MEDS: ENOXAPARIN 40 MG/0.4 ML SYRINGE SQ SCH (17:29)
[2019-04-19] MEDS: PANTOPRAZOLE 40 MG TABLET PO SCH (17:33)
[2019-04-19] MEDS: methylPREDNISolone SOD SUCCI 40 MG/ML 1 ML VIAL IV SCH (17:33)
[2019-04-19] MEDS: IPRATROPIUM-ALBUTEROL 3 ML NEB INHALATION SCH ×2 (18:20→19:47)
[2019-04-19] MEDS: BUDESONIDE 1 MG/2 ML NEBU INHALATION SCH (19:47)
[2019-04-19 20:13] LABS: Glucose,Whole Blood 174 mg/dL (75-99)
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
[2019-04-19] MEDS: CEFEPIME 2 GM in SODIUM CHLORIDE 0.9% 100 ML IVPB SCH (21:11)
[2019-04-20] MEDS: methylPREDNISolone SOD SUCCI 40 MG/ML 1 ML VIAL IV SCH ×2 (00:20→08:20)
[2019-04-20] MEDS: LORazepam 2 MG/ML INJ IV PRN ×6 (03:40→20:43)
[2019-04-20] MEDS: NICOTINE POLACRILEX 2 MG GUM BUCCAL PRN (03:41)
[2019-04-20 06:17] LABS: Glucose,Whole Blood 173 mg/dL (75-99)
[2019-04-20] MEDS: SODIUM CHLORIDE 0.9% 1,000 ML IV SCH ×3 (06:20→20:43)
[2019-04-20] MEDS: CALCIUM CARBONATE LIQUID 500 MG/5 ML CUP PO SCH ×3 (06:37→17:33)
[2019-04-20] MEDS: PANTOPRAZOLE 40 MG TABLET PO SCH ×2 (06:37→16:03)
[2019-04-20] MEDS: THIAMINE 100 MG TAB PO SCH ×2 (06:37→17:33)
[2019-04-20 07:00] LABS: HCT 33.1 % (39.0-53.0); HGB 11.7 gm/dL (13.0-17.5); MCH 33.5 pg (25.0-35.0); MCHC 35.2 g/dL (31.0-37.0); MCV 95.1 fL (80.0-100.0); RBC 3.49 m/uL (4.30-5.90); RDW 12.8 % (11.5-15.5); WBC 3.3 k/uL (3.8-10.6)
[2019-04-20 07:01] LABS: Platelet Count 72 k/uL (150-450)
[2019-04-20 07:03] LABS: ALT 37 U/L (21-72); AST 61 U/L (17-59); African American GFR (CKD) >90 (>60 ml/min/1.73 sqM); Albumin 3.1 g/dL (3.5-5.0); Alkaline Phosphatase 102 U/L (38-126); Anion Gap 6 mmol/L; Blood Urea Nitrogen 6 mg/dL (9-20); Calcium 8.6 mg/dL (8.4-10.2); Carbon Dioxide 27 mmol/L (22-30); Chloride 109 mmol/L (98-107); Glucose 158 mg/dL (74-99); Potassium 3.2 mmol/L (3.5-5.1); Sodium 142 mmol/L (137-145); Total Bilirubin 0.7 mg/dL (0.2-1.3); Total Protein 6.7 g/dL (6.3-8.2)
[2019-04-20] MEDS: BUDESONIDE 1 MG/2 ML NEBU INHALATION SCH ×2 (07:17→19:40)
[2019-04-20] MEDS: IPRATROPIUM-ALBUTEROL 3 ML NEB INHALATION SCH ×5 (07:17→19:40)
[2019-04-20] MEDS: NICOTINE 14MG/24HR PATCH TRANSDERM SCH (08:20)
[2019-04-20] MEDS: METOPROLOL TARTRATE 12.5 MG TAB PO SCH ×3 (08:20→20:43)
[2019-04-20] MEDS: ENOXAPARIN 40 MG/0.4 ML SYRINGE SQ SCH (08:21)
[2019-04-20] MEDS: CEFEPIME 2 GM in SODIUM CHLORIDE 0.9% 100 ML IVPB SCH ×2 (08:21→20:43)
[2019-04-20] MEDS ORDERED: POTASSIUM CHLORIDE ER 20 MEQ TAB.ER PO STA (08:55)
[2019-04-20] MEDS: DIAZEPAM 5 MG TAB PO SCH ×3 (11:32→22:56)
[2019-04-20 11:57] LABS: % Iron Saturation 14.73 (15.00-50.00); Iron 38 ug/dL (65-175); Total Iron Binding Capacity 258 ug/dL (228-460)
[2019-04-20 12:06] LABS: Ferritin 339.8 ng/mL (22.0-322.0); Folate, Serum 10.6 ng/mL
[2019-04-20 12:25] LABS: Glucose,Whole Blood 169 mg/dL (75-99)
[2019-04-20] MEDS: predniSONE 10 MG TAB PO SCH (14:53)
[2019-04-20 17:51] LABS: Glucose,Whole Blood 203 mg/dL (75-99)
[2019-04-20 20:37] LABS: Glucose,Whole Blood 203 mg/dL (75-99)
--- NOTE | 2019-04-20 22:03 | P.PN ---
Progress Note - Text Progress Note Date: 04/20/19 Chief Complaint: Abdominal pain History of presenting complaint: This is a patient I saw yesterday the ER. This is a 59-year-old patient of Dr. Epifanio Garcia. Patient smokes about 3 packs of cigarettes today and also does binge alcohol drinking. Patient presents with increasing upper abdominal pain getting worse progressively over a period of days. Patient not been eating much. Some nausea. Some vomiting. No fever no chills. Occasionally constipated. Pain is worse with eating. Patient did have a EGD colonoscopy back in December of this year. Essentially unremarkable. With some gastritis. Patient been drinking quite a bit a cane since his brother . Admitted with bilateral pneumonia, acute on chronic gastritis from chronic alcohol some with binge drinking, mild pancreatitis, lactic acidosis. Patient had been delirious. Started on CIWA scale, Today-more relaxed. Bit more awake. Slow to answer questions. Better than admission. Did tolerate some diet. Review of systems: Was done for constitutional, cardiovascular, GI, pulmonary. relevant finding as above Active Medications Albuterol/Ipratropium (Duoneb 0.5 Mg-3 Mg/3 Ml Soln) 3 ml INHALATION RT-QID [facility] Last Admin: 04/20/19 19:40 Dose: Not Given Documented by: Budesonide (Pulmicort) 1 mg INHALATION RT-BID [facility] Last Admin: 04/20/19 19:40 Dose: Not Given Documented by: Calcium Carbonate/Glycine (Tums Liquid) 500 mg PO TID-W/MEALS [facility] Last Admin: 04/20/19 17:33 Dose: 500 mg Documented by: Diazepam (Valium) 2.5 mg PO Q8HR [facility] Last Admin: 04/20/19 14:18 Dose: 2.5 mg Documented by: Enoxaparin Sodium (Lovenox) 40 mg SQ DAILY [facility] Last Admin: 04/20/19 08:21 Dose: 40 mg Documented by: Sodium Chloride (Saline 0.9%) 1,000 mls @ 100 mls/hr IV .Q10H [facility] Last Admin: 04/20/19 20:43 Dose: 100 mls/hr Documented by: Cefepime HCl 2 gm/ Sodium (Chloride) 100 mls @ 200 mls/hr IVPB Q12HR [facility] Last Admin: 04/20/19 20:43 Dose: 200 mls/hr Documented by: Lorazepam (Ativan) 1 mg IV Q2HR PRN PRN Reason: CIWA 8 or 9 Last Admin: 04/20/19 20:43 Dose: 1 mg Documented by: Lorazepam (Ativan) 1 mg IV Q1HR PRN PRN Reason: CIWA 10 to 15 Last Admin: 04/20/19 17:34 Dose: 1 mg Documented by: Metoprolol Tartrate (Lopressor) 12.5 mg PO TID [facility] Last Admin: 04/20/19 20:43 Dose: 12.5 mg Documented by: Naloxone HCl (Narcan) 0.2 mg IV Q2M PRN PRN Reason: Opioid Reversal Nicotine (Habitrol 14mg/24hr Patch) 1 patch TRANSDERM DAILY [facility] Last Admin: 04/20/19 08:20 Dose: 1 patch Documented by: Nicotine Polacrilex (Nicorette Gum) 2 mg BUCCAL Q4HR PRN PRN Reason: Nicotine Cravings Last Admin: 04/20/19 03:41 Dose: 2 mg Documented by: Ondansetron HCl (Zofran) 4 mg IVP Q8HR PRN PRN Reason: Nausea And Vomiting Pantoprazole Sodium (Protonix) 40 mg PO AC-BID [facility] Last Admin: 04/20/19 16:03 Dose: 40 mg Documented by: Prednisone () 30 mg PO DAILY [facility] Last Admin: 04/20/19 14:53 Dose: 30 mg Documented by: Thiamine HCl (Vitamin B-1) 100 mg PO BID-W/MEALS [facility] Last Admin: 04/20/19 17:33 Dose: 100 mg Documented by: Physical examination: VITAL SIGNS: 97.8, 98, 16, 154/92, 96% room air GENERAL: [More relaxed today, more awake.. EYES: Pupils equal. Conjunctiva normal. HEENT: External appearance of nose and ears normal, oral cavity grossly normal. NECK: JVD not raised; masses not palpable. HEART: First and second heart sounds are normal; no edema. LUNGS: Respiratory rate increased, decreased breath sounds some wheezing. ABDOMEN: Soft, upper abdominal tenderness, no guarding or rigidity, liver spleen not palpable, no masses palpable. PSYCH: [Alert and oriented x3; mood and affect anxious. Patient is able to answer questions though bit slow. INVESTIGATIONS, reviewed in the clinical context: White count 3.3 hemoglobin 11.7 potassium 3.2 -Iron low at 38, iron saturation low at 40.7 ferritin 339.22 increased for rate normal pro calcitonin 0.96 Previous testing: White count 21.2 hemoglobin 12.7 platelets 107 potassium 3.9 bun 13 creatine 0.56 glucose 383 plasma lactic acid 9.8 Amylase 168 lipase 397 Chest x-ray film-personally reviewed by me shows infiltrates, at both lung bases Computed tomography scan of the abdomen-shows basilar infiltrates in the lung, fatty infiltration of the liver Assessment: -Bilateral pneumonia, some improvement -Acute and chronic gastritis from chronic alcoholism and binge drinking. May have associated esophagitis. Patient in December of this year did have unremarkable EGD colonoscopy. Patient clinically does not have a surgical abdomen. -Lactic acidosis, secondary to sepsis from pneumonia -Mild pancreatitis secondary to alcoholism -Chronic alcoholism -Acute COPD exacerbation in a current smoker -Chronic nicotine dependence patient cigarette smoker -Early delirium tremens. Plan: -Cut back on the dose of Valium. 2.5 mg every 8. Ativan when necessary. IV fluids to continue. Oral intake is improving. She is more stabilized. Care was discussed with the patient. Tenderness. We'll transfuse IV iron.
--- NOTE | 2019-04-20 22:34 | P.PN ---
Subjective Progress Note Date: 04/20/19 Principal diagnosis: Chronic alcoholism, alcohol withdrawal, melena, hepatitis C Patient is seen lying in bed more alert than yesterday. He has tolerated his diet. No abdominal pain. No signs or symptoms of GI bleeding. Objective - Vital Signs Vital signs: Vital Signs Temp 98.2 F 04/20/19 15:57 Pulse 113 H 04/20/19 15:57 Resp 20 04/20/19 16:00 BP 157/85 04/20/19 15:57 Pulse Ox 98 04/20/19 15:57 Intake & Output 04/20/19 04/20/19 04/21/19 06:59 18:59 06:59 Intake Total 2446 Output Total 2300 1000 Balance -2300 1446 Weight 55 kg Intake: Oral 2446 Output: Urine 2300 1000 Other: Voiding Method Urinal # Voids 1 - Exam On physical examination, patient appears comfortable in no apparent distress. HEAD: Normocephalic, atraumatic. EYES: No scleral icterus. No conjunctival injection. MOUTH: No lesions, tongue midline. NECK: Trachea midline, no gross abnormalities. CHEST: No wheezing or rhonchi appreciated. ABDOMEN: Soft, obese. Bowel sounds are positive. No organomegaly. No guarding or rigidity. EXTREMITIES: No pedal edema. SKIN: No rashes, no jaundice. NEUROLOGIC: Alert and oriented, tremulous but no asterixis noted. No focal deficits. - Labs CBC & Chem 7: 04/20/19 06:16 04/20/19 06:16 Labs: Abnormal Lab Results - Last 24 Hours (Table) 04/20/19 04/20/19 04/20/19 Range/Units 06:15 06:16 06:16 WBC 3.3 L (3.8-10.6) k/uL RBC 3.49 L (4.30-5.90) m/uL Hgb 11.7 L (13.0-17.5) gm/dL Hct 33.1 L (39.0-53.0) % Plt Count 72 L (150-450) k/uL Potassium (3.5-5.1) mmol/L Chloride (98-107) mmol/L BUN (9-20) mg/dL Creatinine (0.66-1.25) mg/dL Glucose (74-99) mg/dL POC Glucose (mg/dL) 173 H (75-99) mg/dL Iron (65-175) ug/dL % Saturation (15.00-50.00) Ferritin (22.0-322.0) ng/mL AST (17-59) U/L Albumin (3.5-5.0) g/dL Vitamin B12 (200.0-944.0) pg/mL Procalcitonin 0.96 H (0.02-0.09) ng/mL 04/20/19 04/20/19 04/20/19 Range/Units 06:16 12:23 17:50 WBC (3.8-10.6) k/uL RBC (4.30-5.90) m/uL Hgb (13.0-17.5) gm/dL Hct (39.0-53.0) % Plt Count (150-450) k/uL Potassium 3.2 L (3.5-5.1) mmol/L Chloride 109 H (98-107) mmol/L BUN 6 L (9-20) mg/dL Creatinine 0.37 L (0.66-1.25) mg/dL Glucose 158 H (74-99) mg/dL POC Glucose (mg/dL) 169 H 203 H (75-99) mg/dL Iron 38 L (65-175) ug/dL % Saturation 14.73 L (15.00-50.00) Ferritin 339.8 H (22.0-322.0) ng/mL AST 61 H (17-59) U/L Albumin 3.1 L (3.5-5.0) g/dL Vitamin B12 1651.0 H (200.0-944.0) pg/mL Procalcitonin (0.02-0.09) ng/mL 04/20/19 Range/Units 20:35 WBC (3.8-10.6) k/uL RBC (4.30-5.90) m/uL Hgb (13.0-17.5) gm/dL Hct (39.0-53.0) % Plt Count (150-450) k/uL Potassium (3.5-5.1) mmol/L Chloride (98-107) mmol/L BUN (9-20) mg/dL Creatinine (0.66-1.25) mg/dL Glucose (74-99) mg/dL POC Glucose (mg/dL) 203 H (75-99) mg/dL Iron (65-175) ug/dL % Saturation (15.00-50.00) Ferritin (22.0-322.0) ng/mL AST (17-59) U/L Albumin (3.5-5.0) g/dL Vitamin B12 (200.0-944.0) pg/mL Procalcitonin (0.02-0.09) ng/mL Microbiology - Last 24 Hours (Table) 04/18/19 14:17 Blood Culture - Preliminary Blood No Growth after 48 hours Assessment and Plan (1) Chronic alcoholism Narrative/Plan: 59-year-old with history of chronic hepatitis C and alcoholism currently presenting for evaluation of alcohol withdrawal, and concerns over possible GI bleed. Patient underwent endoscopic evaluation in December 2018 which was essentially negative except for polypectomy and internal hemorrhoids. No further signs or symptoms of GI bleeding after presentation. Hemoglobin currently stable at 11.7 from 10.6. Current Visit: Yes Status: Acute Code(s): F10.20 - ALCOHOL DEPENDENCE, UNCOMPLICATED SNOMED Code(s): 2691276 (2) Melena Current Visit: Yes Status: Acute Code(s): K92.1 - MELENA SNOMED Code(s): 2140673 (3) Hepatitis C Current Visit: No Status: Chronic Code(s): B19.20 - UNSPECIFIED VIRAL HEPATITIS C WITHOUT HEPATIC COMA SNOMED Code(s): 63058883 Plan: Supportive care Continue Protonix 40 mg twice daily Continue to monitor hemoglobin and transfuse as needed Continue nutrition and vitamin supplementation Okay for diet as tolerated Alcohol abstinence Monitor for withdrawal from alcohol No plans for endoscopic evaluation at this time Thank you for allowing us to participate in the care of the patient, the GI service will stand by, please call us back with any questions or concerns
[2019-04-20] MEDS: SODIUM FERRIC GLUCONAT-SUCROSE 125 MG in SODIUM CHLORIDE 0.9% 100 ML IVPB SCH (22:40)
[2019-04-21] MEDS: LORazepam 2 MG/ML INJ IV PRN ×2 (03:41→08:13)
[2019-04-21 06:19] LABS: Glucose,Whole Blood 111 mg/dL (75-99)
[2019-04-21] MEDS: PANTOPRAZOLE 40 MG TABLET PO SCH ×2 (06:22→16:24)
[2019-04-21] MEDS: THIAMINE 100 MG TAB PO SCH ×2 (06:22→16:24)
[2019-04-21] MEDS: CALCIUM CARBONATE LIQUID 500 MG/5 ML CUP PO SCH ×3 (06:22→16:21)
[2019-04-21] MEDS: IPRATROPIUM-ALBUTEROL 3 ML NEB INHALATION SCH ×5 (08:00→21:32)
[2019-04-21] MEDS: BUDESONIDE 1 MG/2 ML NEBU INHALATION SCH ×3 (08:00→21:32)
[2019-04-21] MEDS: DIAZEPAM 5 MG TAB PO SCH ×2 (08:12→17:20)
[2019-04-21] MEDS: NICOTINE 14MG/24HR PATCH TRANSDERM SCH (09:23)
[2019-04-21] MEDS: ENOXAPARIN 40 MG/0.4 ML SYRINGE SQ SCH (09:23)
[2019-04-21] MEDS: predniSONE 10 MG TAB PO SCH (09:23)
[2019-04-21] MEDS: METOPROLOL TARTRATE 12.5 MG TAB PO SCH ×3 (09:23→21:36)
[2019-04-21] MEDS: CEFEPIME 2 GM in SODIUM CHLORIDE 0.9% 100 ML IVPB SCH ×2 (09:24→21:29)
[2019-04-21 11:38] LABS: African American GFR (CKD) >90 (>60 ml/min/1.73 sqM); Anion Gap 8 mmol/L; Blood Urea Nitrogen 9 mg/dL (9-20); Carbon Dioxide 25 mmol/L (22-30); Chloride 107 mmol/L (98-107); Glucose 106 mg/dL (74-99); Potassium 3.2 mmol/L (3.5-5.1); Sodium 140 mmol/L (137-145)
[2019-04-21] MEDS: SODIUM CHLORIDE 0.9% 1,000 ML IV SCH ×2 (11:51→21:30)
[2019-04-21 11:55] LABS: Glucose,Whole Blood 99 mg/dL (75-99)
[2019-04-21 17:02] LABS: Glucose,Whole Blood 112 mg/dL (75-99)
[2019-04-21] MEDS: ACETAMINOPHEN TAB 325 MG TAB PO PRN (17:07)
[2019-04-21 20:49] LABS: Glucose,Whole Blood 106 mg/dL (75-99)
[2019-04-21] MEDS ORDERED: DIAZEPAM 5 MG TAB PO SCH (21:00)
[2019-04-21] MEDS: SODIUM FERRIC GLUCONAT-SUCROSE 125 MG in SODIUM CHLORIDE 0.9% 100 ML IVPB SCH (21:29)
[2019-04-21] MEDS ORDERED: LISINOPRIL-HCTZ 20-12.5 MG 1 EACH TAB PO SCH (22:15)
--- NOTE | 2019-04-21 22:23 | P.PN ---
Progress Note - Text Progress Note Date: 04/21/19 Chief Complaint: Abdominal pain History of presenting complaint: This is a patient I saw yesterday the ER. This is a 59-year-old patient of Dr. Epifanio Garcia. Patient smokes about 3 packs of cigarettes today and also does binge alcohol drinking. Patient presents with increasing upper abdominal pain getting worse progressively over a period of days. Patient not been eating much. Some nausea. Some vomiting. No fever no chills. Occasionally constipated. Pain is worse with eating. Patient did have a EGD colonoscopy back in December of this year. Essentially unremarkable. With some gastritis. Patient been drinking quite a bit a cane since his brother . Admitted with bilateral pneumonia, acute on chronic gastritis from chronic alcohol some with binge drinking, mild pancreatitis, lactic acidosis. Patient had been delirious. Started on CIWA scale, Today-Doing better. Still little bit slow. But improved. Answering questions more appropriately. Eating better. Up in the hallway. Does of Valium being cut back.. Review of systems: Was done for constitutional, cardiovascular, GI, pulmonary. relevant finding as above Active Medications Acetaminophen (Tylenol Tab) 650 mg PO Q6HR PRN PRN Reason: Fever and/ or Pain Last Admin: 04/21/19 17:07 Dose: 650 mg Documented by: Albuterol/Ipratropium (Duoneb 0.5 Mg-3 Mg/3 Ml Soln) 3 ml INHALATION RT-QID [facility] Last Admin: 04/21/19 21:32 Dose: Not Given Documented by: Amoxicillin/Clavulanate Potassium (Augmentin 875-125) 1 each PO Q12HR [facility] Budesonide (Pulmicort) 1 mg INHALATION RT-BID [facility] Last Admin: 04/21/19 21:32 Dose: Not Given Documented by: Calcium Carbonate/Glycine (Tums Liquid) 500 mg PO TID-W/MEALS [facility] Last Admin: 04/21/19 16:21 Dose: Not Given Documented by: Enoxaparin Sodium (Lovenox) 40 mg SQ DAILY [facility] Last Admin: 04/21/19 09:23 Dose: Not Given Documented by: Lisinopril/HCTZ (Zestoretic 10-12.5) 1 each PO BID [facility] Lorazepam (Ativan) 1 mg IV Q2HR PRN PRN Reason: CIWA 8 or 9 Last Admin: 04/21/19 08:13 Dose: 1 mg Documented by: Lorazepam (Ativan) 1 mg IV Q1HR PRN PRN Reason: CIWA 10 to 15 Last Admin: 04/20/19 17:34 Dose: 1 mg Documented by: Metoprolol Tartrate (Lopressor) 25 mg PO BID [facility] Naloxone HCl (Narcan) 0.2 mg IV Q2M PRN PRN Reason: Opioid Reversal Nicotine (Habitrol 14mg/24hr Patch) 1 patch TRANSDERM DAILY [facility] Last Admin: 04/21/19 09:23 Dose: Not Given Documented by: Nicotine Polacrilex (Nicorette Gum) 2 mg BUCCAL Q4HR PRN PRN Reason: Nicotine Cravings Last Admin: 04/20/19 03:41 Dose: 2 mg Documented by: Ondansetron HCl (Zofran) 4 mg IVP Q8HR PRN PRN Reason: Nausea And Vomiting Pantoprazole Sodium (Protonix) 40 mg PO AC-BID [facility] Last Admin: 04/21/19 16:24 Dose: 40 mg Documented by: Prednisone () 30 mg PO DAILY [facility] Last Admin: 04/21/19 09:23 Dose: Not Given Documented by: Thiamine HCl (Vitamin B-1) 100 mg PO BID-W/MEALS [facility] Last Admin: 04/21/19 16:24 Dose: 100 mg Documented by: Physical examination: VITAL SIGNS: 98.1, 75, 18, 165/97, 97% room air GENERAL: Laying in bed, more appropriate with conversation EYES: Pupils equal. Conjunctiva normal. HEENT: External appearance of nose and ears normal, oral cavity grossly normal. NECK: JVD not raised; masses not palpable. HEART: First and second heart sounds are normal; no edema. LUNGS: Respiratory rate normal, decreased breath sounds ABDOMEN: Soft, upper abdominal tenderness, no guarding or rigidity, liver spleen not palpable, no masses palpable. PSYCH: A bit more alert today.. INVESTIGATIONS, reviewed in the clinical context: Potassium 3.2 creatinine 0.47 Previous testing: White count 21.2 hemoglobin 12.7 platelets 107 potassium 3.9 bun 13 creatine 0.56 glucose 383 plasma lactic acid 9.8 Amylase 168 lipase 397 Chest x-ray film-personally reviewed by me shows infiltrates, at both lung bases Computed tomography scan of the abdomen-shows basilar infiltrates in the lung, fatty infiltration of the liver -Iron low at 38, iron saturation low at 40.7 ferritin 339.22 increased for rate normal pro calcitonin 0.96 Assessment: -Bilateral pneumonia, much improved -Acute and chronic gastritis from chronic alcoholism and binge drinking. May have associated esophagitis. Patient in December of this year did have unremarkable EGD colonoscopy. Patient clinically does not have a surgical abdomen. -Lactic acidosis, secondary to sepsis from pneumonia -Mild pancreatitis secondary to alcoholism -Chronic alcoholism -Acute COPD exacerbation in a current smoker -Chronic nicotine dependence patient cigarette smoker -Early delirium tremens., Improving -Essential hypertension uncontrolled Plan: Decreased the dose of Valium to 2.5 mg every 12. Ativan when necessary. We'll DC the Valium tomorrow morning. We'll start the patient on lisinopril hydrochlorothiazide 10/12.5 one tablet twice a day starting this evening. We'll also change her Lopressor to 25 mg twice a day starting tomorrow morning. We'll decrease her prednisone to 20 mg tomorrow. DC cefepime after tonight and switched to Omnicef.
[2019-04-21] MEDS: LISINOPRIL-HCTZ 10-12.5 MG 1 EACH TAB PO SCH (23:35)
[2019-04-22] MEDS: LORazepam 2 MG/ML INJ IV PRN (05:07)
[2019-04-22 07:45] VITALS: BP 101/71; RESP 16; TEMP 97.6
[2019-04-22] MEDS: ENOXAPARIN 40 MG/0.4 ML SYRINGE SQ SCH (07:47)
[2019-04-22] MEDS: LISINOPRIL-HCTZ 10-12.5 MG 1 EACH TAB PO SCH (07:47)
[2019-04-22] MEDS: NICOTINE 14MG/24HR PATCH TRANSDERM SCH (07:49)
[2019-04-22] MEDS: THIAMINE 100 MG TAB PO SCH (07:50)
[2019-04-22] MEDS: CALCIUM CARBONATE LIQUID 500 MG/5 ML CUP PO SCH ×2 (07:50→11:16)
[2019-04-22] MEDS: PANTOPRAZOLE 40 MG TABLET PO SCH (07:50)
[2019-04-22] MEDS: BUDESONIDE 1 MG/2 ML NEBU INHALATION SCH (08:08)
[2019-04-22] MEDS: IPRATROPIUM-ALBUTEROL 3 ML NEB INHALATION SCH ×2 (08:08→11:52)
[2019-04-22 08:11] VITALS: PULSE 90
[2019-04-22] MEDS ORDERED: AMOXIC-POT CLAV 875-125MG 1 EACH TAB PO SCH (09:00)
[2019-04-22] MEDS ORDERED: predniSONE 20 MG TAB PO SCH (09:00)
[2019-04-22] MEDS ORDERED: METOPROLOL TARTRATE 25 MG TAB PO SCH (09:00)
[2019-04-22] MEDS: ACETAMINOPHEN TAB 325 MG TAB PO PRN (11:16)
[2019-04-22 11:35] LABS: Glucose,Whole Blood 153 mg/dL (75-99)
--- NOTE | 2019-04-22 23:06 | P.DS ---
Providers Date of admission: 04/18/19 15:14 Expected date of discharge: 04/22/19 Attending physician: Yunior George Primary care physician: [facility] Course: Chief Complaint: Abdominal pain Interval history: This is a 59-year-old patient of Dr. Epifanio Garcia. Patient smokes about 3 packs of cigarettes today and also does binge alcohol drinking. Patient presents with increasing upper abdominal pain getting worse progressively over a period of days. Patient not been eating much. Some nausea. Some vomiting. No fever no chills. Occasionally constipated. Pain is worse with eating. Patient did have a EGD colonoscopy back in December of this year. Essentially unremarkable. With some gastritis. Patient been drinking quite a bit a cane since his brother . Admitted with bilateral pneumonia, acute on chronic gastritis from chronic alcohol with binge drinking, mild pancreatitis, lactic acidosis. Patient had been delirious. Started on CIWA scale, patient responded well to Valium. That was tapered off. Also treated with IV antibiotics switched over to Augmentin. Bronchodilators. Steroids. Today by the time of discharge patient was back to his normal self. Alert having a conversation. 3. Up in the hallway. Tolerating a diet. Consultation: Dr. Chaudhari from GI Physical examination: VITAL SIGNS: 97.6, 93, 16, 101/71, 97% room air GENERAL: Sitting upon a chair, awake EYES: Pupils equal. Conjunctiva normal. HEENT: External appearance of nose and ears normal, oral cavity grossly normal. NECK: JVD not raised; masses not palpable. HEART: First and second heart sounds are normal; no edema. LUNGS: Respiratory rate normal, decreased breath sounds ABDOMEN: Soft, minimal abdominal tenderness, no guarding or rigidity, liver spleen not palpable, no masses palpable. PSYCH: AAO 3, motor affect normal.. INVESTIGATIONS, reviewed in the clinical context: White count 21.2 hemoglobin 12.7 platelets 107 potassium 3.9 bun 13 creatine 0.56 glucose 383 plasma lactic acid 9.8 Amylase 168 lipase 397 Chest x-ray film-personally reviewed by me shows infiltrates, at both lung bases Computed tomography scan of the abdomen-shows basilar infiltrates in the lung, fatty infiltration of the liver -Iron low at 38, iron saturation low at 40.7 ferritin 339.22 increased for rate normal pro calcitonin 0.96 Assessment: -Bilateral pneumonia, improved -Acute and chronic gastritis from chronic alcoholism and binge drinking. May have associated esophagitis. Patient in December of this year did have unremarkable EGD colonoscopy. Patient clinically does not have a surgical abdomen. -Lactic acidosis, secondary to sepsis from pneumonia -Mild pancreatitis secondary to alcoholism -Chronic alcoholism -Acute COPD exacerbation in a current smoker -Chronic nicotine dependence patient cigarette smoker -Early delirium tremens., Improving -Essential hypertension uncontrolled Plan: Blood pressure medication adjusted. Care was discussed with the patient. Patient doing much better. Patient will be going down to [place]. Patient Condition at Discharge: Stable Plan - Discharge Summary Discharge Rx Participant: No New Discharge Prescriptions: New Ipratropium [place] [Atrovent Hfa] 2 puff INHALATION QID #1 inhaler Amoxic-Pot Clav 875-125Mg [Augmentin 875-125] 1 each PO Q12HR #4 tab Nicotine 14Mg/24Hr Patch [Habitrol] 1 patch TRANSDERM DAILY #14 patch Multivitamin [Multivitamins Adult Gummies] 1 each PO DAILY #30 tablet Omeprazole [PriLOSEC] 20 mg PO AC-BID #60 cap Albuterol Inhaler [Ventolin Hfa Inhaler] 1 - 2 puff INHALATION RT-Q6H PRN #1 inhaler PRN Reason: Wheezing Thiamine [Vitamin B-1] 100 mg PO BID-W/MEALS #30 tab Lisinopril-Hctz 20-12.5 mg [Zestoretic 20-12.5] 1 tab PO BID #60 tab Discontinued Aspirin EC [Ecotrin Low Dose] 81 mg PO DAILY Ibuprofen [Motrin] 800 mg PO TID PRN PRN Reason: Pain Discharge Medication List Albuterol Inhaler [Ventolin Hfa Inhaler] 1 - 2 puff INHALATION RT-Q6H PRN #1 inhaler 04/22/19 [Rx] Amoxic-Pot Clav 875-125Mg [Augmentin 875-125] 1 each PO Q12HR #4 tab 04/22/19 [Rx] Ipratropium [place] [Atrovent Hfa] 2 puff INHALATION QID #1 inhaler 04/22/19 [Rx] Lisinopril-Hctz 20-12.5 mg [Zestoretic 20-12.5] 1 tab PO BID #60 tab 04/22/19 [Rx] Multivitamin [Multivitamins Adult Gummies] 1 each PO DAILY #30 tablet 04/22/19 [Rx] Nicotine 14Mg/24Hr Patch [Habitrol] 1 patch TRANSDERM DAILY #14 patch 04/22/19 [Rx] Omeprazole [PriLOSEC] 20 mg PO AC-BID #60 cap 04/22/19 [Rx] Thiamine [Vitamin B-1] 100 mg PO BID-W/MEALS #30 tab 04/22/19 [Rx] Follow up Appointment(s)/Referral(s): Epifanio Rosario MD [Primary Care Provider] - 05/07/19 3:30 pm ( -earliest available appointment) Yadiel Stringer MD [STAFF PHYSICIAN] - 05/06/19 2:15 pm Patient Instructions/Handouts: Abuse of Alcohol (DC) Activity/Diet/Wound Care/Special Instructions: Patient is medically stable for [place] return for treatment Discharge Disposition: HOME SELF-CARE
== END 2019-04-22 14:41 | DRG 871 ==
LOC: EC 10:48 → 3SCARD 15:14 → 4SSUR 04-21 19:31
PROVIDERS: ADMIT Hospitalist; ATTEND Hospitalist
DX: A41.9 Sepsis, unspecified organism (principal); K85.20 Alcohol induced acute pancreatitis without necrosis or infection; J18.9 Pneumonia, unspecified organism; K29.01 Acute gastritis with bleeding; K29.51 Unspecified chronic gastritis with bleeding; F10.231 Alcohol dependence with withdrawal delirium; E87.2 Acidosis; C22.9 Malignant neoplasm of liver, not specified as primary or secondary; J44.0 Chronic obstructive pulmonary disease with (acute) lower respiratory infection; J44.1 Chronic obstructive pulmonary disease with (acute) exacerbation; D69.59 Other secondary thrombocytopenia; E11.65 Type 2 diabetes mellitus with hyperglycemia; E86.0 Dehydration; D53.9 Nutritional anemia, unspecified; Y90.0 Blood alcohol level of less than 20 mg/100 ml; B18.2 Chronic viral hepatitis C; K64.8 Other hemorrhoids; I10 Essential (primary) hypertension; K59.00 Constipation, unspecified; F41.9 Anxiety disorder, unspecified; F15.11 Other stimulant abuse, in remission; F90.9 Attention-deficit hyperactivity disorder, unspecified type; M19.90 Unspecified osteoarthritis, unspecified site; F17.210 Nicotine dependence, cigarettes, uncomplicated; Z79.82 Long term (current) use of aspirin; Z87.01 Personal history of pneumonia (recurrent); Z87.828 Personal history of other (healed) physical injury and trauma; Z98.890 Other specified postprocedural states; Z80.0 Family history of malignant neoplasm of digestive organs
CPT/HCPCS: 36415; 71046; 74177; 80048; 80053; 80320; 81001; 82009; 82150; 82272; 82607; 82728; 82746; 83540; 83550; 83605; 83690; 83735; 84145; 85025; 85027; 85610; 85730; 86850; 86900; 86901; 87040; 94640; 96361; 96365; 96366; 96372; 96375; 96376; 99291

== ENCOUNTER 2020-05-11 22:55 | Observation (INO) | payer OTHER ==
[2020-05-11] MEDS ORDERED: PANTOPRAZOLE 40 MG/10 ML VIAL IVP STA (23:15)
[2020-05-11] MEDS ORDERED: SODIUM CHLORIDE 0.9% 500 ML 500 ML IV STA (23:15)
[2020-05-11] MEDS ORDERED: ONDANSETRON 4 MG/2 ML VIAL IVP STA (23:26)
[2020-05-11] MEDS ORDERED: LORazepam 2 MG/ML INJ IV STA (23:26)
[2020-05-11] MEDS ORDERED: LORazepam 2 MG/ML INJ IV PRN ×2 (23:27)
--- NOTE | 2020-05-11 23:29 | ED ---
GI Bleed HPI - General Chief complaint: GI Bleed Stated complaint: GI Bleed Time Seen by Provider: 05/11/20 23:14 Source: patient, EMS Mode of arrival: EMS Limitations: no limitations - History of Present Illness Initial comments: This patient is 60-year-old man who presents to be evaluated for vomiting blood. The patient states that this morning around 10 AM he started feeling nauseated and having some epigastric burning, and then he began having vomiting. He noticed that there were some small amounts of blood and then this increased over the course of the day. He has had a total of about 7-8 episodes of vomiting. Patient has not noted any change in bowel movements. No dark tarry or bloody stools. Patient does state he was admitted here last year for vomiting blood. Patient denies symptoms of anemia. No lightheadedness or syncope, chest pain, dyspnea, diaphoresis or palpitations. Patient admits to drinking usually four 24 ounce beers per day but today when he had two. He states he is feeling somewhat shaky. Review of the records shows that the patient did have upper and lower endoscopy in December 2018 without any varices. The upper endoscopy was essentially normal. MD complaint: gross hematemesis Onset/Timin -: hour(s) Quality: burning Consistency: constant Improves with: none Worsens with: vomiting Context: history of GI bleed, liver disease, alcohol abuse Associated Symptoms: abdominal pain, nausea, vomiting Treatments Prior to Arrival: none - Related Data Home Medications Medication Instructions Recorded Confirmed Albuterol Sulfate [Proair Hfa] 1 - 2 puff INHALATION RT-Q6H PRN 05/12/20 05/12/20 Ipratropium [place] [Atrovent Hfa] 2 puff INHALATION RT-QID 05/12/20 05/12/20 lisinopriL [Prinivil] 20 mg PO DAILY 05/12/20 05/12/20 Previous Rx's Medication Instructions Recorded LORazepam [Ativan] 1 mg PO DIRECTED 3 Days #12 tab 05/13/20 Nicotine 14Mg/24Hr Patch [Habitrol] 1 patch TRANSDERM DAILY #7 patch 05/13/20 Pantoprazole Sodium [Protonix] 40 mg PO DAILY #30 tablet. 05/13/20 Thiamine [Vitamin B-1] 100 mg PO DAILY #30 tab 05/13/20 Allergies Allergy/AdvReac Type Severity Reaction Status Date / Time No Known Allergies Allergy Verified 05/12/20 09:48 Review of Systems ROS Statement: Those systems with pertinent positive or pertinent negative responses have been documented in the HPI. ROS Other: All systems not noted in ROS Statement are negative. Constitutional: Denies: fever, chills, weakness Respiratory: Denies: cough, dyspnea, hemoptysis Cardiovascular: Denies: chest pain, palpitations, edema, syncope Gastrointestinal: Reports: as per HPI, abdominal pain, nausea, vomiting, hematemesis. Denies: diarrhea, melena, hematochezia Genitourinary: Denies: dysuria, hematuria Musculoskeletal: Denies: back pain Skin: Denies: rash Neurological: Denies: headache, weakness, numbness Psychiatric: Reports: anxiety Hematological/Lymphatic: Denies: easy bleeding Past Medical History Past Medical History: GI Bleed, Liver Disease Additional Past Medical History / Comment(s): Hep C, recent burn on left arm. ARTHRITIS History of Any Multi-Drug Resistant Organisms: None Reported Past Surgical History: Hernia Repair, Tonsillectomy Additional Past Surgical History / Comment(s): RT HAND BROKE/SCREWS IN PLACE Past Anesthesia/Blood Transfusion Reactions: No Reported Reaction Additional Past Anesthesia/Blood Transfusion Reaction / Comment(s): HAD BLOOD TRANSUSIONS Past Psychological History: ADD/ADHD, Anxiety Smoking Status: Current some day smoker Past Alcohol Use History: Abuse, Daily Past Drug Use History: None Reported - Past Family History family Additional Family Medical History / Comment(s): Brother of colon cancer General Exam Limitations: no limitations General appearance: alert, in no apparent distress Head exam: Present: atraumatic, normocephalic Eye exam: Present: normal appearance. Absent: scleral icterus, conjunctival injection Respiratory exam: Present: normal lung sounds bilaterally. Absent: respiratory distress, wheezes, rales, rhonchi, stridor Cardiovascular Exam: Present: regular rate, normal rhythm, normal heart sounds. Absent: systolic murmur, diastolic murmur, rubs, gallop GI/Abdominal exam: Present: soft, hernia (Small umbilical hernia without tenderness or incarceration). Absent: distended, tenderness, guarding, rebound, rigid, mass Rectal exam: Present: normal inspection, normal rectal tone. Absent: hemorrhoids, mass, tenderness Extremities exam: Present: normal inspection, normal capillary refill. Absent: pedal edema, calf tenderness Back exam: Present: normal inspection. Absent: CVA tenderness (R), CVA tenderness (L) Neurological exam: Present: alert Skin exam: Present: warm, dry, intact, normal color. Absent: rash Course Vital Signs 05/11/20 05/12/20 05/12/20 23:02 00:22 01:57 Temperature 98.3 F Pulse Rate 120 H 118 H 113 H Respiratory 16 20 20 Rate Blood Pressure 141/92 127/72 117/74 O2 Sat by Pulse 97 98 98 Oximetry 05/12/20 05/12/20 04:20 06:50 Temperature 98.0 F 98.2 F Pulse Rate 110 H 108 H Respiratory 20 18 Rate Blood Pressure 134/82 149/70 O2 Sat by Pulse 99 98 Oximetry Medical Decision Making - Lab Data Result diagrams: 05/13/20 11:37 05/13/20 11:37 Lab Results 05/11/20 05/11/20 05/11/20 Range/Units 23:21 23:21 23:21 WBC 7.5 (3.8-10.6) k/uL RBC 3.68 L (4.30-5.90) m/uL Hgb 12.5 L (13.0-17.5) gm/dL Hct 36.3 L (39.0-53.0) % MCV 98.5 (80.0-100.0) fL MCH 34.0 (25.0-35.0) pg MCHC 34.6 (31.0-37.0) g/dL RDW 13.3 (11.5-15.5) % Plt Count 153 (150-450) k/uL MPV 7.9 Neutrophils % 63 % Lymphocytes % 27 % Monocytes % 5 % Eosinophils % 3 % Basophils % 2 % Neutrophils # 4.7 (1.3-7.7) k/uL Lymphocytes # 2.0 (1.0-4.8) k/uL Monocytes # 0.4 (0-1.0) k/uL Eosinophils # 0.2 (0-0.7) k/uL Basophils # 0.1 (0-0.2) k/uL PT (9.0-12.0) sec INR (<1.2) APTT 22.5 (22.0-30.0) sec Sodium 132 L (137-145) mmol/L Potassium 3.9 (3.5-5.1) mmol/L Chloride 103 (98-107) mmol/L Carbon Dioxide 21 L (22-30) mmol/L Anion Gap 8 mmol/L BUN 14 (9-20) mg/dL Creatinine 0.61 L (0.66-1.25) mg/dL Est GFR (CKD-EPI)AfAm >90 (>60 ml/min/1.73 sqM) Est GFR (CKD-EPI)NonAf >90 (>60 ml/min/1.73 sqM) Glucose 117 H (74-99) mg/dL Plasma Lactic Acid Rob (0.7-2.0) mmol/L Calcium 8.7 (8.4-10.2) mg/dL Total Bilirubin 0.6 (0.2-1.3) mg/dL AST 345 H (17-59) U/L ALT 209 H (4-49) U/L Alkaline Phosphatase 141 H (38-126) U/L Troponin I (0.000-0.034) ng/mL Total Protein 8.0 (6.3-8.2) g/dL Albumin 4.1 (3.5-5.0) g/dL Blood Type Blood Type Recheck Bld Type Recheck Status Antibody Screen Spec Expiration Date 05/11/20 05/11/20 05/11/20 Range/Units 23:21 23:21 23:45 WBC (3.8-10.6) k/uL RBC (4.30-5.90) m/uL Hgb (13.0-17.5) gm/dL Hct (39.0-53.0) % MCV (80.0-100.0) fL MCH (25.0-35.0) pg MCHC (31.0-37.0) g/dL RDW (11.5-15.5) % Plt Count (150-450) k/uL MPV Neutrophils % % Lymphocytes % % Monocytes % % Eosinophils % % Basophils % % Neutrophils # (1.3-7.7) k/uL Lymphocytes # (1.0-4.8) k/uL Monocytes # (0-1.0) k/uL Eosinophils # (0-0.7) k/uL Basophils # (0-0.2) k/uL PT (9.0-12.0) sec INR (<1.2) APTT (22.0-30.0) sec Sodium (137-145) mmol/L Potassium (3.5-5.1) mmol/L Chloride (98-107) mmol/L Carbon Dioxide (22-30) mmol/L Anion Gap mmol/L BUN (9-20) mg/dL Creatinine (0.66-1.25) mg/dL Est GFR (CKD-EPI)AfAm (>60 ml/min/1.73 sqM) Est GFR (CKD-EPI)NonAf (>60 ml/min/1.73 sqM) Glucose (74-99) mg/dL Plasma Lactic Acid Rob 1.3 (0.7-2.0) mmol/L Calcium (8.4-10.2) mg/dL Total Bilirubin (0.2-1.3) mg/dL AST (17-59) U/L ALT (4-49) U/L Alkaline Phosphatase (38-126) U/L Troponin I <0.012 (0.000-0.034) ng/mL Total Protein (6.3-8.2) g/dL Albumin (3.5-5.0) g/dL Blood Type O Positive Blood Type Recheck O Pos Bld Type Recheck Status No Antibody Screen NEGATIVE Spec Expiration Date 05/14/2020 - 234405/11/20 Range/Units 23:51 WBC (3.8-10.6) k/uL RBC (4.30-5.90) m/uL Hgb (13.0-17.5) gm/dL Hct (39.0-53.0) % MCV (80.0-100.0) fL MCH (25.0-35.0) pg MCHC (31.0-37.0) g/dL RDW (11.5-15.5) % Plt Count (150-450) k/uL MPV Neutrophils % % Lymphocytes % % Monocytes % % Eosinophils % % Basophils % % Neutrophils # (1.3-7.7) k/uL Lymphocytes # (1.0-4.8) k/uL Monocytes # (0-1.0) k/uL Eosinophils # (0-0.7) k/uL Basophils # (0-0.2) k/uL PT 10.9 (9.0-12.0) sec INR 1.1 (<1.2) APTT (22.0-30.0) sec Sodium (137-145) mmol/L Potassium (3.5-5.1) mmol/L Chloride (98-107) mmol/L Carbon Dioxide (22-30) mmol/L Anion Gap mmol/L BUN (9-20) mg/dL Creatinine (0.66-1.25) mg/dL Est GFR (CKD-EPI)AfAm (>60 ml/min/1.73 sqM) Est GFR (CKD-EPI)NonAf (>60 ml/min/1.73 sqM) Glucose (74-99) mg/dL Plasma Lactic Acid Rob (0.7-2.0) mmol/L Calcium (8.4-10.2) mg/dL Total Bilirubin (0.2-1.3) mg/dL AST (17-59) U/L ALT (4-49) U/L Alkaline Phosphatase (38-126) U/L Troponin I (0.000-0.034) ng/mL Total Protein (6.3-8.2) g/dL Albumin (3.5-5.0) g/dL Blood Type Blood Type Recheck Bld Type Recheck Status Antibody Screen Spec Expiration Date - EKG Data -: EKG Interpreted by Me EKG shows normal: axis (Normal), intervals (Normal), QRS complexes (Normal), ST- T waves (Normal) Rate: tachycardia (Rate approximately 117 bpm) Interpretation: other Disposition Clinical Impression: Gastrointestinal hemorrhage, Chronic alcoholism Disposition: ADMITTED IP TO THIS HOSP Condition: Stable Is patient prescribed a controlled substance at d/c from ED?: No
[2020-05-11 23:48] LABS: Basophils # (A) 0.1 k/uL (0-0.2); Basophils % (A) 2 %; Eosinophils # (A) 0.2 k/uL (0-0.7); Eosinophils % (A) 3 %; HCT 36.3 % (39.0-53.0); HGB 12.5 gm/dL (13.0-17.5); Lymphocytes % (A) 27 %; MCHC 34.6 g/dL (31.0-37.0); MCV 98.5 fL (80.0-100.0); Mean Platelet Volume 7.9; Monocytes # (A) 0.4 k/uL (0-1.0); Monocytes % (A) 5 %; Neutrophils # (A) 4.7 k/uL (1.3-7.7); Neutrophils % (A) 63 %; Platelet Count 153 k/uL (150-450); RBC 3.68 m/uL (4.30-5.90); RDW 13.3 % (11.5-15.5); WBC 7.5 k/uL (3.8-10.6)
[2020-05-12 00:15] LABS: ALT 209 U/L (4-49); AST 345 U/L (17-59); African American GFR (CKD) >90 (>60 ml/min/1.73 sqM); Albumin 4.1 g/dL (3.5-5.0); Alkaline Phosphatase 141 U/L (38-126); Anion Gap 8 mmol/L; Blood Urea Nitrogen 14 mg/dL (9-20); Calcium 8.7 mg/dL (8.4-10.2); Carbon Dioxide 21 mmol/L (22-30); Chloride 103 mmol/L (98-107); Glucose 117 mg/dL (74-99); Non-African American GFR(CKD) >90 (>60 ml/min/1.73 sqM); Potassium 3.9 mmol/L (3.5-5.1); Sodium 132 mmol/L (137-145); Total Bilirubin 0.6 mg/dL (0.2-1.3)
[2020-05-12] MEDS ORDERED: SODIUM CHLORIDE 0.9% 1,000 ML IV STA (01:12)
[2020-05-12] MEDS ORDERED: ONDANSETRON 4 MG/2 ML VIAL IVP PRN (01:13)
[2020-05-12] MEDS ORDERED: NALOXONE 0.4 MG/ML 1 ML VIAL IV PRN (01:13)
[2020-05-12 01:40] LABS: INR 1.1 (<1.2); Prothrombin Time 10.9 sec (9.0-12.0)
[2020-05-12] MEDS ORDERED: ACETAMINOPHEN TAB 325 MG TAB PO STA (02:28)
[2020-05-12] MEDS: LORazepam 2 MG/ML INJ IV PRN ×6 (04:27→23:57)
[2020-05-12] MEDS: THIAMINE 100 MG TAB PO SCH ×2 (07:09→17:35)
[2020-05-12] MEDS ORDERED: PANTOPRAZOLE 40 MG/10 ML VIAL IV SCH (09:00)
[2020-05-12 09:07] LABS: Basophils % (A) 1 %; Eosinophils # (A) 0.1 k/uL (0-0.7); Eosinophils % (A) 2 %; HCT 31.9 % (39.0-53.0); HGB 10.6 gm/dL (13.0-17.5); Lymphocytes # (A) 1.2 k/uL (1.0-4.8); Lymphocytes % (A) 28 %; MCH 33.6 pg (25.0-35.0); MCHC 33.3 g/dL (31.0-37.0); Macrocytosis Slight; Mean Platelet Volume 7.8; Monocytes # (A) 0.3 k/uL (0-1.0); Monocytes % (A) 6 %; Neutrophils # (A) 2.8 k/uL (1.3-7.7); Neutrophils % (A) 63 %; Platelet Count 105 k/uL (150-450); RBC 3.16 m/uL (4.30-5.90); RDW 13.9 % (11.5-15.5); WBC 4.4 k/uL (3.8-10.6)
[2020-05-12] MEDS: NICOTINE 14MG/24HR PATCH TRANSDERM SCH (11:20)
[2020-05-12 12:06] LABS: ALT 169 U/L (4-49); AST 233 U/L (17-59); African American GFR (CKD) >90 (>60 ml/min/1.73 sqM); Albumin 3.3 g/dL (3.5-5.0); Alkaline Phosphatase 121 U/L (38-126); Anion Gap 5 mmol/L; Blood Urea Nitrogen 20 mg/dL (9-20); Calcium 8.3 mg/dL (8.4-10.2); Carbon Dioxide 23 mmol/L (22-30); Chloride 106 mmol/L (98-107); Glucose 101 mg/dL (74-99); Non-African American GFR(CKD) >90 (>60 ml/min/1.73 sqM); Sodium 134 mmol/L (137-145); Total Bilirubin 1.3 mg/dL (0.2-1.3); Total Protein 6.7 g/dL (6.3-8.2)
--- NOTE | 2020-05-12 13:30 | P.HPIM ---
History of Present Illness This is a pleasant 60 years old male with multiple medical problems as below. He is a patient of Dr. SANDS and also see Dr. Granados for his hepatitis C Presents because of bloody vomiting for 4-5 times started yesterday associated with feeling of abdominal fullness but no overt abdominal pain or discomfort Also patient denies chest pain or dyspnea, He denies blood in his stool but states it is black in color No headache or dizziness or numbness. He smokes about 2 packs per day without specification, he is willing to quit and he agrees to the nicotine patch He drinks about 4 beers per day, he denies illicit drugs. He has under stress recently because he is supposed to go to [place] for a new job starting early next month however he denies any signs or symptoms of depression or suicidal ideation. On admission patient is tachycardic at 110 , blood pressure is stable. Patient has slight hemoglobin 12.5 down to 10.6. Rest of CBC and BMP were unremarkable. INR is normal at 1.1 liver enzymes slightly elevated. Bilirubin is normal Occult blood in the stool is positive. He is on Protonix. Review of Systems CONSTITUTIONAL: No fever, no malaise, no fatigue. HEENT: No recent visual problems or hearing problems. Denied any sore throat. CARDIOVASCULAR: No orthopnea, PND, no palpitations, no syncope. PULMONARY: No shortness of breath, no cough, no hemoptysis. GASTROINTESTINAL: No diarrhea, Normoactive bowel sounds. NEUROLOGICAL: No headaches, no weakness, no numbness. HEMATOLOGICAL: Denies any bleeding or petechiae. GENITOURINARY: Denies any burning micturition, frequency, or urgency. MUSCULOSKELETAL/RHEUMATOLOGICAL: Denies any joint pain, swelling, or any muscle pain. ENDOCRINE: Denies any polyuria or polydipsia. Past Medical History Past Medical History: GI Bleed, Liver Disease Additional Past Medical History / Comment(s): Hep C, recent burn on left arm. ARTHRITIS History of Any Multi-Drug Resistant Organisms: None Reported Past Surgical History: Hernia Repair, Tonsillectomy Additional Past Surgical History / Comment(s): RT HAND BROKE/SCREWS IN PLACE Past Anesthesia/Blood Transfusion Reactions: No Reported Reaction Additional Past Anesthesia/Blood Transfusion Reaction / Comment(s): HAD BLOOD TRANSUSIONS Past Psychological History: ADD/ADHD, Anxiety Smoking Status: Current some day smoker Past Alcohol Use History: Abuse, Daily Past Drug Use History: None Reported - Past Family History family Additional Family Medical History / Comment(s): Brother of colon cancer Medications and Allergies Home Medications Medication Instructions Recorded Confirmed Type Omeprazole [PriLOSEC] 20 mg PO AC-BID #60 cap 04/22/19 05/12/20 Rx Albuterol Sulfate [Proair Hfa] 1 - 2 puff INHALATION RT-Q6H PRN 05/12/20 05/12/20 History Ipratropium [place] [Atrovent Hfa] 2 puff INHALATION RT-QID 05/12/20 05/12/20 History lisinopriL [Prinivil] 20 mg PO DAILY 05/12/20 05/12/20 History Allergies Allergy/AdvReac Type Severity Reaction Status Date / Time No Known Allergies Allergy Verified 05/12/20 09:48 Physical Exam Vitals: Vital Signs Temp Pulse Resp BP Pulse Ox 05/12/20 06:50 98.2 F 108 H 18 149/70 98 05/12/20 04:20 98.0 F 110 H 20 134/82 99 05/12/20 01:57 113 H 20 117/74 98 05/12/20 00:22 118 H 20 127/72 98 05/11/20 23:02 98.3 F 120 H 16 141/92 97 Intake and Output 05/11/20 05/12/20 05/12/20 22:59 06:59 14:59 Other: Weight 65.771 kg GENERAL: The patient is alert and oriented x3, not in any acute distress. Well developed, well nourished. HEENT: Pupils are round and equally reacting to light. EOMI. No scleral icterus. No conjunctival pallor. Normocephalic, atraumatic. No pharyngeal erythema. No thyromegaly. CARDIOVASCULAR: S1 and S2 present. No murmurs, rubs, or gallops. PULMONARY: Chest is clear to auscultation, no wheezing or crackles. -ABDOMEN: Soft, mild epigastric tenderness with no rebound tenderness, nondistended, normoactive bowel sounds. No palpable organomegaly. MUSCULOSKELETAL: No joint swelling or deformity. EXTREMITIES: No cyanosis, clubbing, or pedal edema. NEUROLOGICAL: Gross neurological examination did not reveal any focal deficits. SKIN: No rashes. No petechiae Results CBC & Chem 7: 05/12/20 07:41 05/12/20 07:41 Labs: Abnormal Lab Results - Last 24 Hours (Table) 05/11/20 05/11/20 05/12/20 Range/Units 23:21 23:21 07:41 RBC 3.68 L 3.16 L (4.30-5.90) m/uL Hgb 12.5 L 10.6 L (13.0-17.5) gm/dL Hct 36.3 L 31.9 L (39.0-53.0) % MCV 101.0 H (80.0-100.0) fL Plt Count 105 L (150-450) k/uL Sodium 132 L (137-145) mmol/L Carbon Dioxide 21 L (22-30) mmol/L Creatinine 0.61 L (0.66-1.25) mg/dL Glucose 117 H (74-99) mg/dL AST 345 H (17-59) U/L ALT 209 H (4-49) U/L Alkaline Phosphatase 141 H (38-126) U/L Assessment and Plan Assessment: Acute upper GI bleed Acute blood loss anemia Alcohol abuse History of hepatitis C with transaminitis Arthritis. Anxiety Nicotine dependence Plan: this is a pleasant 60 years old male who presents with GI bleed. Monitor hemoglobin. Continue with Protonix. GI team were consulted. Continue with nicotine patch and CIWA protocol and vitamin Labs and medication were reviewed.. Continue same treatment. Continue with symptomatic treatment. Resume home medication. Monitor lytes and vitals. DVT and GI prophylaxis. Further recommendations depends on the clinical course of the patient DVT prophylaxis: no Subcutaneous heparin FOR GI BLEED GI Prophylaxis: Protonix Prognosis is guarded
[2020-05-12 14:22] LABS: HCT 33.5 % (39.0-53.0); HGB 11.3 gm/dL (13.0-17.5); MCH 33.9 pg (25.0-35.0); MCHC 33.7 g/dL (31.0-37.0); MCV 100.5 fL (80.0-100.0); Platelet Count 109 k/uL (150-450); RBC 3.34 m/uL (4.30-5.90); RDW 13.2 % (11.5-15.5); WBC 4.7 k/uL (3.8-10.6)
[2020-05-12 14:23] LABS: Basophils # (A) 0.1 k/uL (0-0.2); Basophils % (A) 1 %; Eosinophils # (A) 0.1 k/uL (0-0.7); Eosinophils % (A) 2 %; Lymphocytes # (A) 1.3 k/uL (1.0-4.8); Lymphocytes % (A) 29 %; Monocytes # (A) 0.3 k/uL (0-1.0); Monocytes % (A) 6 %; Neutrophils # (A) 2.9 k/uL (1.3-7.7); Neutrophils % (A) 62 %
--- NOTE | 2020-05-12 14:48 | P.CONS ---
History of Present Illness - Reason for Consult Consult date: 05/12/20 Hematemesis Requesting physician: Edilberto E Sheet - Chief Complaint Hematemesis - History of Present Illness 60-year-old male with a medical history significant for alcohol abuse, hepatitis C treatment [place] and osteoarthritis who presented to the hospital due to vomiting of blood. The patient has been seen on prior visits for similar complaints. He did report abstinence from alcohol for a while however over the past few months she is began drinking 224 pounds beers daily. He reports sudden onset of hematemesis yesterday. He reports approximately 30 episodes of vo miting of bright red blood. He reports the sensation of abdominal fullness but no silva pain. He reports one dark bowel movement yesterday and none today. He does report use of Aleve and aspirin therapy usually every other day. He does report taking Prilosec daily. Patient was found to have a fall in hemoglobin after presentation from 12.5 down to 10.6 and currently 11.3 on repeat blood draw he also had elevation in his liver enzymes with total bilirubin 0.6, alkaline phosphatase 141, AST 345 and ALT 209 with stool testing positive for blood and INR of 1.1. His last endoscopic evaluation was on 12/27/2018 and significant for normal EGD with no evidence of esophagitis or peptic ulcer dis ease and polypectomy and internal hemorrhoids on colonoscopy. Currently the patient is seen lying in bed in the emergency department denying any further vomiting since presentation and asking for diet. Review of Systems REVIEW OF SYSTEMS: CONSTITUTIONAL: Denies any fevers, chills, weight change or fatigue. CARDIOVASCULAR: Denies any chest pain, palpitations high or low blood pressures RESPIRATORY: Denies any shortness of breath, hemoptysis or cough. GENITOURINARY: No dysuria or hematuria. MUSCULOSKELETAL: No weakness reported. SKIN: Denies any new rashes or lesions, jaundice or pallor. PSYCHIATRIC: Denies any depression or anxiety, he does have a known history of alcohol abuse. NEUROLOGY: Denies headache, denies any new focal deficits. EARS/NOSE/THROAT: No recent hearing change, congestion, nasal discharge or sore throat. EYES: No pain in eyes, discharge or change in vision. GASTROINTESTINAL: As per HPI. Past Medical History Past Medical History: GI Bleed, Liver Disease Additional Past Medical History / Comment(s): Hep C, recent burn on left arm. AR THRITIS History of Any Multi-Drug Resistant Organisms: None Reported Past Surgical History: Hernia Repair, Tonsillectomy Additional Past Surgical History / Comment(s): RT HAND BROKE/SCREWS IN PLACE Past Anesthesia/Blood Transfusion Reactions: No Reported Reaction Additional Past Anesthesia/Blood Transfusion Reaction / Comm: HAD BLOOD TRANSUSIONS Past Psychological History: ADD/ADHD, Anxiety Smoking Status: Current some day smoker Past Alcohol Use History: Abuse, Daily Past Drug Use History: None Reported - Past Family History family Additional Family Medical History / Comment(s): Brother of colon cancer Medications and Allergies Home Medications Medication Instructions Recorded Confirmed Type Omeprazole [PriLOSEC] 20 mg PO AC-BID #60 cap 04/22/19 05/12/20 Rx Albuterol Sulfate [Proair Hfa] 1 - 2 puff INHALATION RT-Q6H PRN 05/12/20 05/12/20 History Ipratropium [place] [Atrovent Hfa] 2 puff INHALATION RT-QID 05/12/20 05/12/20 History lisinopriL [Prinivil] 20 mg PO DAILY 05/12/20 05/12/20 History Allergies Allergy/AdvReac Type Severity Reaction Status Date / Time No Known Allergies Allergy Verified 05/12/20 09:48 Physical Exam Vitals: Vital Signs Temp Pulse Resp BP Pulse Ox 05/12/20 06:50 98.2 F 108 H 18 149/70 98 05/12/20 04:20 98.0 F 110 H 20 134/82 99 05/12/20 01:57 113 H 20 117/74 98 05/12/20 00:22 118 H 20 127/72 98 05/11/20 23:02 98.3 F 120 H 16 141/92 97 Intake and Output 05/11/20 05/12/20 05/12/20 22:59 06:59 14:59 Other: Weight 65.771 kg On physical examination, patient appears comfortable in no apparent distress. HEAD: Normocephalic, atraumatic. EYES: No scleral icterus. No conjunctival injection. MOUTH: No lesions, tongue midline. NECK: Trachea midline, no gross abnormalities. CHEST: Clear to auscultation with no wheezing or rhonchi appreciated. HEART: Regular rate and rhythm. ABDOMEN: Soft, nontender to palpation. Bowel sounds are positive. No organomegaly. No guarding or rigidity. EXTREMITIES: No pedal edema. SKIN: No rashes, no jaundice. NEUROLOGIC: Alert and oriented x3. No focal deficits. Results CBC & Chem 7: 05/12/20 13:52 05/12/20 07:41 Labs: Abnormal Lab Results - Last 24 Hours (Table) 05/11/20 05/11/20 05/12/20 Range/Units 23:21 23:21 07:41 RBC 3.68 L 3.16 L (4.30-5.90) m/uL Hgb 12.5 L 10.6 L (13.0-17.5) gm/dL Hct 36.3 L 31.9 L (39.0-53.0) % MCV 101.0 H (80.0-100.0) fL Plt Count 105 L (150-450) k/uL Sodium 132 L (137-145) mmol/L Carbon Dioxide 21 L (22-30) mmol/L Creatinine 0.61 L (0.66-1.25) mg/dL Glucose 117 H (74-99) mg/dL AST 345 H (17-59) U/L ALT 209 H (4-49) U/L Alkaline Phosphatase 141 H (38-126) U/L Assessment and Plan (1) Gastrointestinal hemorrhage Narrative/Plan: 60-year-old male with multiple medical comorbidities including alcohol abuse and hepatitis C treatment [facility] who presented for hematemesis. He reports 30 episodes of bright red blood which started suddenly yesterday. No further episodes since presentation. He is on NSAID therapy and takes Aleve and aspirin at home. He is been seen previously for similar complaints. Last endoscopic evaluation in 12/2018 with no evidence of varices on EGD and polypectomy and hemorrhoids on colonoscopy. The patient has again been drinking over the past 3 months reporting 2 24 ounce beers daily. Unclear etiology, suspicion is for Gladis-Calixto tear or esophagitis, plan is for EGD to rule out other possible etiologies such as peptic ulcer disease, variceal bleed or other cause of his hematemesis. Current Visit: No Status: Acute Code(s): K92.2 - GASTROINTESTINAL HEMORRHAGE, UNSPECIFIED SNOMED Code(s): 84927649 (2) Elevated liver enzymes Narrative/Plan: Likely multifactorial and secondary to underlying hepatitis C and alcohol abuse. Current Visit: Yes Status: Acute Code(s): R74.8 - ABNORMAL LEVELS OF OTHER SERUM ENZYMES SNOMED Code(s): 093343329 (3) Hepatitis C Current Visit: No Status: Chronic Code(s): B19.20 - UNSPECIFIED VIRAL HEPATITIS C WITHOUT HEPATIC COMA SNOMED Code(s): 41248616 Plan: Supportive care Continue to monitor hemoglobin and hematocrit and transfuse as needed Continue IV Protonix therapy Alcohol abstinence Nothing by mouth after midnight Plan for EGD tomorrow for further evaluation patient should be nothing by mouth after midnight Continue to monitor liver enzymes Continue to monitor and treat for symptoms of alcohol withdrawal Thank you for allowing us to participate in the care of the patient
[2020-05-12] MEDS: ONDANSETRON 4 MG/2 ML VIAL IVP SCH ×2 (17:34→23:56)
[2020-05-12] MEDS: PANTOPRAZOLE 40 MG/10 ML VIAL IV SCH (20:14)
[2020-05-12 20:21] LABS: Basophils % (A) 1 %; Eosinophils # (A) 0.1 k/uL (0-0.7); Eosinophils % (A) 2 %; HCT 32.8 % (39.0-53.0); Lymphocytes # (A) 1.6 k/uL (1.0-4.8); Lymphocytes % (A) 31 %; MCH 33.9 pg (25.0-35.0); MCHC 33.7 g/dL (31.0-37.0); MCV 100.6 fL (80.0-100.0); Mean Platelet Volume 8.1; Monocytes # (A) 0.3 k/uL (0-1.0); Monocytes % (A) 7 %; Neutrophils % (A) 57 %; Platelet Count 118 k/uL (150-450); RBC 3.26 m/uL (4.30-5.90); RDW 13.3 % (11.5-15.5); WBC 5.2 k/uL (3.8-10.6)
[2020-05-12 20:26] LABS: Glucose,Whole Blood 102 mg/dL (75-99)
[2020-05-12 23:59] VITALS: RESP 18
[2020-05-13 00:30] LABS: Basophils % (A) 1 %; Eosinophils # (A) 0.1 k/uL (0-0.7); Eosinophils % (A) 3 %; HCT 28.8 % (39.0-53.0); HGB 10.1 gm/dL (13.0-17.5); Lymphocytes # (A) 1.1 k/uL (1.0-4.8); Lymphocytes % (A) 33 %; MCH 34.6 pg (25.0-35.0); MCHC 35.1 g/dL (31.0-37.0); MCV 98.6 fL (80.0-100.0); Mean Platelet Volume 8.8; Monocytes # (A) 0.2 k/uL (0-1.0); Monocytes % (A) 6 %; Neutrophils # (A) 1.9 k/uL (1.3-7.7); Neutrophils % (A) 56 %; RBC 2.92 m/uL (4.30-5.90); RDW 13.2 % (11.5-15.5); WBC 3.3 k/uL (3.8-10.6)
[2020-05-13 01:03] LABS: Anisocytosis (M) Present
[2020-05-13 01:04] LABS: Platelet Count 95 k/uL (150-450)
[2020-05-13 03:51] VITALS: TEMP 97.6
[2020-05-13] MEDS: LORazepam 2 MG/ML INJ IV PRN (04:58)
[2020-05-13 06:25] LABS: Glucose,Whole Blood 133 mg/dL (75-99)
[2020-05-13] MEDS: THIAMINE 100 MG TAB PO SCH (06:28)
[2020-05-13] MEDS: PANTOPRAZOLE 40 MG/10 ML VIAL IV SCH (08:46)
[2020-05-13] MEDS: ONDANSETRON 4 MG/2 ML VIAL IVP SCH (08:47)
[2020-05-13] MEDS ORDERED: PROPOFOL 10 MG/ML 20 ML VIAL IV ONE (09:04)
[2020-05-13] MEDS ORDERED: SODIUM CHLORIDE 0.9% 500 ML 500 ML IV ONE ×2 (09:08)
--- NOTE | 2020-05-13 09:34 | P.PCN ---
Date of Procedure: 05/13/20 Description of Procedure: BRIEF HISTORY: 60-year-old male with a medical history significant for alcohol abuse, hepatitis C treatment magnolia and osteoarthritis who presented to the hospital due to vomiting of blood. The patient has been seen on prior visits for similar complaints. He did report abstinence from alcohol for a while however over the past few months she is began drinking 224 pounds beers daily. He reports sudden onset of hematemesis yesterday. He reports approximately 30 episodes of vomiting of bright red blood. He reports the sensation of abdominal fullness but no silva pain. He reports one dark bowel movement yesterday and none today. He does report use of Aleve and aspirin therapy usually every other day. He does report taking Prilosec daily. Patient was found to have a fall in hemoglobin after presentation from 12.5 down to 10.6 and currently 11.3 on repeat blood draw he also had elevation in his liver enzymes with total bilirubin 0.6, alkaline phosphatase 141, AST 345 and ALT 209 with stool testing positive for blood and INR of 1.1. His last endoscopic evaluation was on 12/27/2018 and significant for normal EGD with no evidence of esophagitis or peptic ulcer disease and polypectomy and internal hemorrhoids on colonoscopy. PROCEDURE PERFORMED: Esophagogastroduodenoscopy. PREOPERATIVE DIAGNOSIS: Hematemesis, GI bleed. ESTIMATED BLOOD LOSS: Minimal. IV sedation per anesthesia. PROCEDURE: After informed consent was obtained, the patient was brought into the endoscopy unit. IV sedation was administered by Anesthesia under continuous monitoring. Initially the Olympus GIF-190 video endoscope was inserted into the mouth. Esoph jacy intubated without any difficulty. It was gradually advanced into the stomach and duodenum and carefully examined. The bulb and the second part of the duodenum appeared normal. The scope at this time was withdrawn to the stomach, adequately insufflated with air, and upon careful examination, mucosa of the antrum, body, cardia and the fundus appeared normal. The scope was then withdrawn into the esophagus. The GE junction was located at 37 cm from the incisors. The esophagus appeared normal, except for some mild erythema in the distal esophagus is proximal to the GE junction consistent with LA grade a esophagitis. There were no erosions or ulcerations seen and the patient tolerated the procedure well. IMPRESSION: 1. LA Grade a esophagitis. 2. No active bleeding, or old blood noted. RECOMMENDATIONS: The findings of this examination were discussed with the patient. Okay for diet. Continue Protonix therapy. No plans for further endoscopic evaluation at this time. Okay for discharge when otherwise medically stable. The GI service will stand by, please call us back with any questions or concerns.
[2020-05-13] MEDS: NICOTINE 14MG/24HR PATCH TRANSDERM SCH (10:00)
[2020-05-13 10:03] VITALS: BP 134/73; PULSE 98
[2020-05-13 12:12] LABS: Glucose,Whole Blood 133 mg/dL (75-99)
[2020-05-13 12:36] LABS: Basophils % (A) 1 %; Eosinophils # (A) 0.1 k/uL (0-0.7); Eosinophils % (A) 3 %; HCT 31.8 % (39.0-53.0); HGB 10.6 gm/dL (13.0-17.5); Lymphocytes # (A) 0.9 k/uL (1.0-4.8); Lymphocytes % (A) 26 %; MCH 33.5 pg (25.0-35.0); MCHC 33.2 g/dL (31.0-37.0); Macrocytosis Slight; Mean Platelet Volume 7.9; Monocytes # (A) 0.2 k/uL (0-1.0); Monocytes % (A) 7 %; Neutrophils # (A) 2.1 k/uL (1.3-7.7); Neutrophils % (A) 61 %; Platelet Count 103 k/uL (150-450); RBC 3.15 m/uL (4.30-5.90); RDW 13.3 % (11.5-15.5); WBC 3.5 k/uL (3.8-10.6)
[2020-05-13 12:42] LABS: ALT 145 U/L (4-49); AST 194 U/L (17-59); African American GFR (CKD) >90 (>60 ml/min/1.73 sqM); Albumin 3.8 g/dL (3.5-5.0); Alkaline Phosphatase 96 U/L (38-126); Anion Gap 7 mmol/L; Blood Urea Nitrogen 10 mg/dL (9-20); Calcium 8.8 mg/dL (8.4-10.2); Carbon Dioxide 24 mmol/L (22-30); Chloride 103 mmol/L (98-107); Glucose 108 mg/dL (74-99); Non-African American GFR(CKD) >90 (>60 ml/min/1.73 sqM); Potassium 3.9 mmol/L (3.5-5.1); Sodium 134 mmol/L (137-145); Total Bilirubin 0.8 mg/dL (0.2-1.3); Total Protein 7.4 g/dL (6.3-8.2)
[2020-05-13 13:29] VITALS: BMI 21.7
--- NOTE | 2020-05-14 08:28 | P.DS ---
Providers Date of admission: 05/12/20 01:13 Attending physician: Yunior George Consults: 05/12/20 01:14 Consult Physician Routine Consulting Provider: Yadiel Stringer Consult Reason/Comments: GI Bleeding and Hepatitis C with levated liver enz Do you want consulting provider notified?: Yes Primary care physician: Epifanio Rosario [facility] Course: Diagnoses: Acute upper GI bleed. Bleeding stopped. Hemoglobin is stable. EGD: LA grade a esophagitis, No active bleeding. Throughout its secondary to his alcoholic gastritis Acute blood loss anemia Alcohol abuse History of hepatitis C with transaminitis Arthritis. Anxiety Nicotine dependence Hospital course: This is a pleasant 60 years old male with multiple medical problems as below. He is a patient of Dr. Langston also see Dr. Granados for his hepatitis C Presents because of bloody vomiting for 4-5 times started 1 day prior associated with feeling of abdominal fullness but no overt abdominal pain or discomfort. On admission his hemoglobin was 12.5, came down to 10.6-11.3, however it remained stable on this range. Vitals were stable. Patient has been evaluated by oil dispatcher team, he underwent EGD: Showed LA a grade a esophagitis with no active bleeding or old blood noted. After the procedure oil dispatcher recommended okay for diet, continue with Protonix, no plans for further endoscopic evaluation, looking for discharge when medically stable. After the procedure patient was awakened to be discharged when I went to the room patient was already dressed AND packed his stuff and ready to go. He was fully awake and oriented, he was calm, he told me that he understands that his symptoms are secondary to alcohol problem and that he quit for 4 years before but he relapsed and now he wants to quit alcohol again and he was asking for Ativan or diazepam taper as it was helping him last time to quit. This seemed score was ranging between 8-9. Patient looks reliable. Quick Ativan taper as provided for him over 4 days. However patient was instructed extensively not to drink alcohol while he is taking the Ativan. Risks including but not limited to respiratory depression, cardiopulmonary arrest, and/or , and this risk are present even without alcohol but becomes more pronounced and more dangerous with drinking alcohol both together, he verbalized understanding and acceptance and he told me he will not drink alcohol while taking active Patient was cleared for discharge by GI service is discharged on Protonix and quick Ativan taper. Also nicotine patch as provided for him as he told me he is planning to quit smoking as well Problems and management plan were discussed with the patient and he verbalized understanding and acceptance Patient was found stable and can be discharged home however he needs follow-up as an outpatient. Patient was instructed to follow up with PCP Dr. Bledsoe within one week and patient agrees. Also was instructed to follow up with oil dispatcher Dr. Sanabria did the procedure for him and he agrees, it was lunch time. Patient does not want to wait for the staff to make appointments for him stating that he will need his own appointments Gen: patient is a AAOx3, no distress CVS: S1-S2, RRR, no murmur Lungs: B/L CTA, no wheezing Abdomen: soft, no distention, no tenderness, positive bowel sounds Extremity: no leg edema or induration Time spent more than 35 minutes Patient Condition at Discharge: Stable Plan - Discharge Summary Discharge Rx Participant: No New Discharge Prescriptions: New Pantoprazole Sodium [Protonix] 40 mg PO DAILY #30 tablet. Thiamine [Vitamin B-1] 100 mg PO DAILY #30 tab LORazepam [Ativan] 1 mg PO DIRECTED 3 Days #12 tab Nicotine 14Mg/24Hr Patch [Habitrol] 1 patch TRANSDERM DAILY #7 patch Continue Ipratropium [place] [Atrovent Hfa] 2 puff INHALATION RT-QID Albuterol Sulfate [Proair Hfa] 1 - 2 puff INHALATION RT-Q6H PRN PRN Reason: Shortness Of Breath lisinopriL [Prinivil] 20 mg PO DAILY Discontinued Omeprazole [PriLOSEC] 20 mg PO AC-BID #60 cap Discharge Medication List Albuterol Sulfate [Proair Hfa] 1 - 2 puff INHALATION RT-Q6H PRN 05/12/20 [History] Ipratropium [place] [Atrovent Hfa] 2 puff INHALATION RT-QID 05/12/20 [History] lisinopriL [Prinivil] 20 mg PO DAILY 05/12/20 [History] LORazepam [Ativan] 1 mg PO DIRECTED 3 Days #12 tab 05/13/20 [Rx] Nicotine 14Mg/24Hr Patch [Habitrol] 1 patch TRANSDERM DAILY #7 patch 05/13/20 [Rx] Pantoprazole Sodium [Protonix] 40 mg PO DAILY #30 tablet. 05/13/20 [Rx] Thiamine [Vitamin B-1] 100 mg PO DAILY #30 tab 05/13/20 [Rx] Follow up Appointment(s)/Referral(s): Epifanio Rosario MD [Primary Care Provider] - 1-2 days (Office is closed. PLease call on Saturday to schedule appointment) Yadiel Stringer MD [STAFF PHYSICIAN] - 1 Week (Office closed at noon on Saturday. Please call to schedule appointment) Patient Instructions/Handouts: Upper Endoscopy (DC) Discharge Disposition: HOME SELF-CARE
== END 2020-05-13 14:17 | disposition home or self-care (01) ==
LOC: EC 22:55 → 3SCARD 05-12 01:13 → INTOOBSV 05-12 01:13 → 3SCARD 05-12 04:59 → UNDODISIN 05-13 14:17
PROVIDERS: ADMIT Hospitalist; ATTEND Hospitalist
DX: K29.21 Alcoholic gastritis with bleeding (principal); K20.91 Esophagitis, unspecified with bleeding; F10.10 Alcohol abuse, uncomplicated; D62 Acute posthemorrhagic anemia; B19.20 Unspecified viral hepatitis C without hepatic coma; R74.01 Elevation of levels of liver transaminase levels; F41.9 Anxiety disorder, unspecified; F17.210 Nicotine dependence, cigarettes, uncomplicated; R00.0 Tachycardia, unspecified; M19.90 Unspecified osteoarthritis, unspecified site; F90.9 Attention-deficit hyperactivity disorder, unspecified type; Z87.19 Personal history of other diseases of the digestive system; Z79.899 Other long term (current) drug therapy; Z86.19 Personal history of other infectious and parasitic diseases; Z87.828 Personal history of other (healed) physical injury and trauma; Z98.890 Other specified postprocedural states; Z90.89 Acquired absence of other organs; Y90.9 Presence of alcohol in blood, level not specified; Z87.81 Personal history of (healed) traumatic fracture; Z79.1 Long term (current) use of non-steroidal anti-inflammatories (NSAID); Z79.82 Long term (current) use of aspirin; Z97.2 Presence of dental prosthetic device (complete) (partial); Z80.0 Family history of malignant neoplasm of digestive organs
CPT/HCPCS: 96376; 96361; 96374; 96375; 99285; 36415; 93005; 86900; 86901; 80053 ×3; 83605; 84484; 85025 ×3; 85610; 85730; 86850; 82272; 43235; G0378 ×2; S4990 ×2; J2060 ×3; J2405 ×3; J2704; C9113 ×3